=== PATIENT | female | born 1960 | race Caucasian/White ===

== ENCOUNTER 2019-09-11 18:19 | Inpatient (IN) ==
[2019-09-11 19:34] LABS: Basophils # (auto) 0.03 K/uL (0-0.2); Basophils % (auto) 0.5 %; Eosinophils # (auto) 0.13 K/uL (0-0.5); Eosinophils % (auto) 2.4 %; Hematocrit (blood only) 43.2 % (37-47); Hemoglobin 13.9 g/dL (12.0-16.0); Immature Granulocytes # (auto) 0.01 K/uL (0.00-0.02); Immature Granulocytes % (auto) 0.2 %; Lymphocytes # (auto) 2.26 K/uL (1.2-3.4); Mean Corpuscular Hgb Conc 32.2 g/dL (32-36); Mean Corpuscular Volume 93.1 fL (80-100); Mean Platelet Volume 11.3 fL (7.4-10.4); Monocytes # (auto) 0.52 K/uL (0.11-0.59); Monocytes % (auto) 9.4 %; Neutrophils # (auto) 2.56 K/uL (1.4-6.5); Neutrophils % (auto) 46.5 %; Platelet Count 147 K/uL (130-400); RDW Coefficient of Variation 14.3 % (11.5-14.5); RDW Standard Deviation 48.2 fL (36.4-46.3); Red Blood Count 4.64 M/uL (4.2-5.4); White Blood Count 5.51 K/uL (4.8-10.8)
[2019-09-11 19:49] LABS: Acetaminophen < 2 ug/ml (10-30); Alanine Aminotransferase 34 U/L (12-78); Albumin Level 3.7 gm/dl (3.4-5.0); Aspartate Aminotransferase 22 U/L (15-37); BUN Creatinine Ratio 44.7 (10-20); Blood Urea Nitrogen 36 mg/dl (7-18); Calcium 9.2 mg/dl (8.5-10.1); Carbon Dioxide 26 mmol/L (21-32); Chloride 108 mmol/L (98-107); Est GFR (African American) 94.9; Est GFR (Non-African American) 81.8; Glucose 127 mg/dl (70-99); Potassium 3.7 mmol/L (3.5-5.1); Salicylate 2.9 mg/dl (2.8-20); Sodium 141 mmol/L (136-145)
[2019-09-11 19:59] LABS: Albumin Globulin Ratio 1.4 (0.9-2); Alkaline Phosphatase 48 U/L (45-117); Bilirubin,Total 0.2 mg/dl (0.2-1); Globulin 2.6 gm/dl (2.5-4.0); Total Protein 6.3 gm/dl (6.4-8.2)
[2019-09-11 20:46] LABS: Appearance Urine Clear (Clear); Bacteria Urine Automated Negative (Negative); Bilirubin Urine Negative (Negative); Blood Urine Negative (Negative); Color Urine Yellow; Epithelial Cell Urine Auto >30 /lpf (0-5); Glucose Urine UA Negative (Negative); Ketones Urine Negative (Negative); Leukocyte Esterase Urine Trace (Negative); Nitrite Urine Negative (Negative); Protein Urine Negative (Negative); RBC Urine Automated 0-4 /hpf (0-4); Specific Gravity Urine 1.029 (1.000-1.030); Urobilinogen Urine Negative (Negative); pH Urine 5.5 (4.5-7.5)
[2019-09-11 21:07] LABS: Amphetamines+Metham, Urine Neg (Neg); Barbiturates, Urine Neg (Neg); Benzodiazepine, Urine Neg (Neg); Cocaine, Urine Neg (Neg); MDMA (Ecstacy), Urine Pos (Neg); Methadone, Urine Neg (Neg); Opiate, Urine Neg (Neg); Phencyclidine, Urine Neg (Neg)
--- NOTE | 2019-09-11 21:26 | Emergency Department Note ---
Entered by Karolina Castillo acting as a scribe for History of Present Illness General Chief complaint: Mental Health Evaluation Stated complaint: DEPRESSION, BORDERLINE SELF HARM-ADMISSION Time Seen by Provider: 09/11/19 18:32 Source: patient History of Present Illness Onset (ago): day(s) 1 Pain Consistency: + constant Relieved By: + none Associated symptoms: + denies other symptoms (denies HI and AVH) Treatments prior to arrival: none The patient is a 59 year old female w/ PMHx of depression and suicidal thoughts who presents to the ED w/ CC of increased suicidal thoughts beginning today. Today she went to her scheduled appointment with her psychiatrist. From their session, her psychiatrist decided it was best to call for a bed for her in a mental health facility. The patient states that when she closes her eyes she can see herself overdosing. She reports taking her medications regularly. She denies HI as well as seeing or hearing things that are not real. She reports sleeping sometimes too much, and other times too little. She denies abdominal pain, urinary symptoms, and abnormal bowel issues. Home Medications Home Medications Medication Instructions Recorded Confirmed Type aspirin 81 mg PO DAILY #0 03/16/16 09/11/19 History Multi Vitamin 1 tab PO DAILY #0 tab 04/09/18 09/11/19 History clonazepam 1 mg PO BID PRN 09/11/19 09/11/19 History dicyclomine 20 mg PO QID 09/11/19 09/11/19 History esomeprazole magnesium [Nexium] 40 mg PO HS 09/11/19 09/11/19 History fenofibrate micronized 200 mg PO QAM 09/11/19 09/11/19 History lamotrigine [Lamictal] 200 mg PO BID 09/11/19 09/11/19 History linaclotide [Linzess] 145 mcg PO DAILY 09/11/19 09/11/19 History lisinopril 2.5 mg PO HS 09/11/19 09/11/19 History lovastatin 20 mg PO HS 09/11/19 09/11/19 History olanzapine [Zyprexa] 5 mg PO BID 09/11/19 09/11/19 History omega-3 acid ethyl esters [Lovaza] 2 g PO BID 09/11/19 09/11/19 History trazodone 200 mg PO HS PRN 09/11/19 09/11/19 History varenicline [Chantix] 1 mg PO QAM 09/11/19 09/11/19 History Allergies Allergy/AdvReac Type Severity Reaction Status Date / Time lactose Allergy Intermediate Diarrhea Verified 09/11/19 19:53 clarithromycin Allergy Unknown ITCHY Unverified 09/11/19 19:53 Past Med/Surg History Medical History Bipolar disorder GERD (gastroesophageal reflux disease) (Chronic) History of tinnitus (Chronic) Hyperlipidemia Kidney disease Psychosis Family History Other Family history non-contributory Social History Feels Safe at Home: Yes Smoking Status: Current some day smoker Tobacco Type: cigarettes ; Review of Systems See HPI for pertinent positives & negatives. and A total of 10 systems reviewed and were otherwise negative Physical Exam Vital Signs Vital Signs - 24 hr 09/11/19 18:24 09/11/19 20:35 Temperature 36.5 C Temperature Source Oral Pulse Rate 75 Pulse Rate [Finger] 61 Pulse Rhythm Regular Pulse Strength Normal Respiratory Rate 18 16 Respiratory Effort / Characteristics Non-Labored Spontaneous Respiratory Depth Normal Blood Pressure 135/70 Blood Pressure [Right Arm] 135/63 Blood Pressure Mean 91 Blood Pressure Mean [Right Arm] 87 Blood Pressure Position Sitting Pulse Oximetry 98 96 Oxygen Delivery Method Room Air Room Air Sepsis Recent Fever Within 48 Hours No Sepsis New/Unexplained Change in Mental Status No Sepsis Action Taken by Nursing No Action Required GENERAL: Wearing glasses. Well nourished, NAD, non-toxic. EYE EXAM: Normal conjunctiva. PERRL, no anisocoria and EOM's grossly intact w/o pain. OROPHARYNX: Moist mucous membranes. Grossly normal dentition. NECK: Supple, no nuchal rigidity, no adenopathy, non-tender. No signs of m eningismus. LUNGS: Clear to auscultation. Normal chest wall mechanics. HEART: NSR, no MRG. ABDOMEN: Abdomen soft, non-tender, normo-active bowel sounds, no masses, no rebound or guarding. BACK: No CVA TTP. SKIN: No rashes and no bruising. UPPER EXTREMITIES: Upper extremities are grossly normal. LOWER EXTREMITIES: No pitting edema. No calf pain. NEURO EXAM: A&O x3, cranial nerves II-XII grossly intact, normal speech, moves all 4 extremities on command w/o issue. PSYCH: Positive SI. Denies HI and AVH. Course Course 184: Past medical records reviewed. The patient was evaluated in room A05. A complete history and physical exam was performed. 2005: The patient is medically cleared and is awaiting a bed opening. Medical Decision Making Differential Diagnosis Differential diagnosis includes: mood disorder, infection, hypoglycemia, electrolyte abnormalities, cardiac sources, intracerebral event, toxicologic, neurologic, as well as others were entertained. Medical Records Attestation: I reviewed the patient's medical records. Home Medications Current Medication List: was personally reviewed by me Laboratory Data Attestation: I reviewed the patient's lab results. Result diagrams: 09/11/19 19:12 09/11/19 19:12 Lab Results 09/11/19 09/11/19 09/11/19 Range/Units 19:12 19:12 19:12 WBC 5.51 (4.8-10.8) K/uL RBC 4.64 (4.2-5.4) M/uL Hgb 13.9 (12.0-16.0) g/dL Hct 43.2 (37-47) % MCV 93.1 (80-100) fL MCH 30.0 (25-34) pg MCHC 32.2 (32-36) g/dL RDW Std Deviation 48.2 H (36.4-46.3) fL RDW Coeff of Khadra 14.3 (11.5-14.5) % Plt Count 147 (130-400) K/uL MPV 11.3 H (7.4-10.4) fL Immature Gran % (Auto) 0.2 % Neut % (Auto) 46.5 % Lymph % (Auto) 41.0 % Socorro % (Auto) 9.4 % Eos % (Auto) 2.4 % Baso % (Auto) 0.5 % Immature Gran # (Auto) 0.01 (0.00-0.02) K/uL Neut # (Auto) 2.56 (1.4-6.5) K/uL Lymph # (Auto) 2.26 (1.2-3.4) K/uL [place] # (Auto) 0.52 (0.11-0.59) K/uL Eos # (Auto) 0.13 (0-0.5) K/uL Baso # (Auto) 0.03 (0-0.2) K/uL Sodium 141 (136-145) mmol/L Potassium 3.7 (3.5-5.1) mmol/L Chloride 108 H (98-107) mmol/L Carbon Dioxide 26 (21-32) mmol/L Anion Gap 7.0 (3-11) BUN 36 H (7-18) mg/dl Creatinine 0.80 (0.6-1.2) mg/dl Est Cr Clr Drug Dosing Not Reportable Est GFR ( Amer) 94.9 Est GFR (Non-Af Amer) 81.8 BUN/Creatinine Ratio 44.7 H (10-20) Glucose 127 H (70-99) mg/dl Calcium 9.2 (8.5-10.1) mg/dl Total Bilirubin 0.2 (0.2-1) mg/dl AST 22 (15-37) U/L ALT 34 (12-78) U/L Alkaline Phosphatase 48 (45-117) U/L Total Protein 6.3 L (6.4-8.2) gm/dl Albumin 3.7 (3.4-5.0) gm/dl Globulin 2.6 (2.5-4.0) gm/dl Albumin/Globulin Ratio 1.4 (0.9-2) TSH 1.870 (0.300-4.500) uIu/ml Urine Color Urine Appearance (Clear) Urine pH (4.5-7.5) Ur Specific Chandler (1.000-1.030) Urine Protein (Negative) Urine Glucose (UA) (Negative) Urine Ketones (Negative) Urine Blood (Negative) Urine Nitrite (Negative) Urine Bilirubin (Negative) Urine Urobilinogen (Negative) Ur Leukocyte Esterase (Negative) Urine WBC (Auto) (0-5) /hpf Urine RBC (Auto) (0-4) /hpf U Hyaline Cast (Auto) (0-5) /lpf U Epithel Cells (Auto) (0-5) /lpf Urine Bacteria (Auto) (Negative) Salicylates 2.9 (2.8-20) mg/dl Urine Opiates Screen (Neg) Ur Methadone, Qual (Neg) Acetaminophen < 2 L (10-30) ug/ml Urine Barbiturates (Neg) Ur Phencyclidine (PCP) (Neg) U Amphetamin/Meth Scrn (Neg) MDMA (Ecstasy) Screen (Neg) U Benzodiazepines Scrn (Neg) Ur Cocaine Metabolite (Neg) U Marijuana (THC) Screen (Neg) Ethyl Alcohol mg/dL (0-3) mg/dl 09/11/19 09/11/19 09/11/19 Range/Units 19:12 20:30 20:30 WBC (4.8-10.8) K/uL RBC (4.2-5.4) M/uL Hgb (12.0-16.0) g/dL Hct (37-47) % MCV (80-100) fL MCH (25-34) pg MCHC (32-36) g/dL RDW Std Deviation (36.4-46.3) fL RDW Coeff of Khadra (11.5-14.5) % Plt Count (130-400) K/uL MPV (7.4-10.4) fL Immature Gran % (Auto) % Neut % (Auto) % Lymph % (Auto) % [place] % (Auto) % Eos % (Auto) % Baso % (Auto) % Immature Gran # (Auto) (0.00-0.02) K/uL Neut # (Auto) (1.4-6.5) K/uL Lymph # (Auto) (1.2-3.4) K/uL [place] # (Auto) (0.11-0.59) K/uL Eos # (Auto) (0-0.5) K/uL Baso # (Auto) (0-0.2) K/uL Sodium (136-145) mmol/L Potassium (3.5-5.1) mmol/L Chloride (98-107) mmol/L Carbon Dioxide (21-32) mmol/L Anion Gap (3-11) BUN (7-18) mg/dl Creatinine (0.6-1.2) mg/dl Est Cr Clr Drug Dosing Est GFR ( Amer) Est GFR (Non-Af Amer) BUN/Creatinine Ratio (10-20) Glucose (70-99) mg/dl Calcium (8.5-10.1) mg/dl Total Bilirubin (0.2-1) mg/dl AST (15-37) U/L ALT (12-78) U/L Alkaline Phosphatase (45-117) U/L Total Protein (6.4-8.2) gm/dl Albumin (3.4-5.0) gm/dl Globulin (2.5-4.0) gm/dl Albumin/Globulin Ratio (0.9-2) TSH (0.300-4.500) uIu/ml Urine Color Yellow Urine Appearance Clear (Clear) Urine pH 5.5 (4.5-7.5) Ur Specific Chandler 1.029 (1.000-1.030) Urine Protein Negative (Negative) Urine Glucose (UA) Negative (Negative) Urine Ketones Negative (Negative) Urine Blood Negative (Negative) Urine Nitrite Negative (Negative) Urine Bilirubin Negative (Negative) Urine Urobilinogen Negative (Negative) Ur Leukocyte Esterase Trace H (Negative) Urine WBC (Auto) 1-5 (0-5) /hpf Urine RBC (Auto) 0-4 (0-4) /hpf U Hyaline Cast (Auto) 1-5 (0-5) /lpf U Epithel Cells (Auto) >30 H (0-5) /lpf Urine Bacteria (Auto) Negative (Negative) Salicylates (2.8-20) mg/dl Urine Opiates Screen Neg (Neg) Ur Methadone, Qual Neg (Neg) Acetaminophen (10-30) ug/ml Urine Barbiturates Neg (Neg) Ur Phencyclidine (PCP) Neg (Neg) U Amphetamin/Meth Scrn Neg (Neg) MDMA (Ecstasy) Screen Pos H (Neg) U Benzodiazepines Scrn Neg (Neg) Ur Cocaine Metabolite Neg (Neg) U Marijuana (THC) Screen Neg (Neg) Ethyl Alcohol mg/dL < 3.0 (0-3) mg/dl Blood Pressure Blood Pressure Findings: Elevated blood pressure Blood Pressure Disposition: Referred to patients primary care provider MDM Narrative The patient is a 59 year old female w/ PMHx of depression and suicidal thoughts who presents to the ED w/ CC of increased suicidal thoughts beginning today Patient was seen and evaluated the bedside. The patient been seen here yesterday and did not meet acute inpatient criteria but did follow-up with her psychiatrist today and there is concern for suicidal ideation with plan to overdose. Patient has complained of some change in her sleep habits and poor appetite. The patient states that she is been compliant with her medications and is not actually overdosed on anything today. The patient did have blood work completed along with urine drug and tox screen. These were unremarkable. Patient was deemed medically cleared. The patient was seen and evaluated by psych vocational case manager and subsequently admitted to [facility] for acute inpatient psychiatric treatment. Impression & Plan Depression with suicidal ideation, Acute dehydration Discharge Plan Visit Data Chief Complaint: Mental Health Evaluation Stated Complaint: DEPRESSION, BORDERLINE SELF HARM-ADMISSION ED Provider: Alexandro Montelongo Discharge Problem: Depression with suicidal ideation, Acute dehydration Forms Stand Alone Forms: [facility], Suicide Prevention Resources Prescriptions Prescriptions: No Action aspirin 81 mg Tablet,Delayed Release (Dr/Ec) 81 mg PO DAILY Qty: 0 RF: 0 Multi Vitamin tablet 1 tab PO DAILY Qty: 0 RF: 0 lamotrigine [Lamictal] 200 mg tablet 200 mg PO BID RF: 0 olanzapine [Zyprexa] 5 mg tablet 5 mg PO BID RF: 0 clonazepam 1 mg tablet 1 mg PO BID PRN (Reason: Anxiety) RF: 0 fenofibrate micronized 200 mg capsule 200 mg PO QAM RF: 0 trazodone 100 mg tablet 200 mg PO HS PRN (Reason: Sleep) RF: 0 dicyclomine 20 mg tablet 20 mg PO QID RF: 0 esomeprazole magnesium [Nexium] 40 mg capsule,delayed release(DR/EC) 40 mg PO HS RF: 0 lovastatin 20 mg tablet 20 mg PO HS RF: 0 lisinopril 2.5 mg tablet 2.5 mg PO HS RF: 0 omega-3 acid ethyl esters [Lovaza] 1 gram capsule 2 g PO BID RF: 0 Chantix 1 mg tablet 1 mg PO QAM RF: 0 Linzess 145 mcg capsule 145 mcg PO DAILY RF: 0 The scribe's documentation has been prepared under my direction and personally reviewed by me in its entirety. I confirm that the note above accurately reflects all work, treatment, procedures, and medical decision making performed by me.
[2019-09-11] MEDS ORDERED: ALUMINUM/MAGNESIUM SUSP 30 ML UDC PO PRN (22:46)
[2019-09-11] MEDS ORDERED: ACETAMINOPHEN 325 MG TAB PO PRN (22:46)
[2019-09-11] MEDS ORDERED: SODIUM CHLORIDE 0.65% NA SOLN 45 ML (OCEAN) PRN (22:46)
[2019-09-11] MEDS ORDERED: MAGNESIUM HYDROXIDE SUSP 30 ML UDC PO PRN (22:46)
[2019-09-11] MEDS ORDERED: clonazePAM 1 MG TAB PO PRN (22:48)
[2019-09-12] MEDS: LISINOPRIL 2.5 MG TAB PO SCH ×2 (00:12→21:15)
[2019-09-12] MEDS: LOVASTATIN 20 MG TAB PO SCH ×2 (00:13→21:14)
[2019-09-12] MEDS: OLANZapine 5 MG TABLET PO SCH ×4 (00:13→21:15)
[2019-09-12] MEDS: TRAZODONE HCL 100 MG TAB PO PRN ×2 (00:17→21:30)
[2019-09-12] MEDS ORDERED: DICYCLOMINE HCL 20 MG TAB PO SCH (09:00)
[2019-09-12] MEDS ORDERED: NICOTINE 7 MG/24 HR TDSY TD SCH (09:00)
[2019-09-12] MEDS: LINACLOTIDE 72 MCG CAPSULE PO SCH (09:16)
[2019-09-12] MEDS: FENOFIBRATE NANOCRYSTALLIZED 48 MG TABLET PO SCH (09:19)
[2019-09-12] MEDS: lamoTRIgine 100 MG TAB PO SCH ×2 (09:19→21:13)
[2019-09-12] MEDS: ASPIRIN 81 MG ECTAB PO SCH (09:19)
[2019-09-12] MEDS: MULTIVITAMIN TAB PO SCH (09:20)
[2019-09-12] MEDS: OMEGA-3 (PURIFIED FISH OIL) 1 GM CAP PO SCH ×2 (09:21→21:13)
--- NOTE | 2019-09-12 10:58 | History & Physical ---
Date of Service September 12, 2019 Impression / Recommendations Impression 59-year-old female who has a history of mood disorder (previously diagnosed with both bipolar type I and type II, now with depression), panic disorder, and psychosis NOS who presents with worsening mood and anxiety symptoms and suicidal ideation. She had gone so far as to line up her pill bottles and contemplate overdosing, and does not feel safe outside of the hospital. Inpatient treatment is medically necessary due to the severity of her symptoms and risk for suicide if discharged. (1) Depression: 09/12 -continue home dose of lamotrigine, and patient agrees to increase Zyprexa to 7.5 mg at bedtime to target sleep and mood. -Patient is asking to discontinue Chantix, as she thinks it is contributing to worsening mood. -Continue trazodone for sleep. -Encourage participation in groups and therapy, work on healthy coping skills and a discharge safety plan. -Family meeting has been. -Encourage her to engage in outpatient therapy, and explore ways to increase her supports and socialization. -Request most recent fasting labs for monitoring on an atypical antipsychotic, which patient states she had done at [facility] in [place]. Active/Remission status: currently active Depression Type: major depressive disorder Major depression episode severity: severe Major depression recurrence: recurrent Psychotic features: with psychotic features Qualified Code(s): F33.3 - Major depressive disorder, recurrent, severe with psychotic symptoms Present on Admission?: Yes (2) Panic disorder with agoraphobia: 09/12 -continue clonazepam and change dosing to 0.5 mg 4 times daily, which is how the patient states she takes it at home and how it is most effective. Present on Admission?: Yes (3) Nicotine dependence: 09/12 -patient has cut back significantly on her smoking over the past 2 months, but would like to try discontinuing Chantix to see if it helps with mood. She would like to utilize nicotine replacement instead, so will order a 7 mg patch and nicotine gum as needed. Follow-up will be scheduled with her outpatient psychiatrist for ongoing smoking cessation treatment. Present on Admission?: Yes Risk Factors Assessment Male: No : Yes Do You Have Access To A Gun?: No Health Problems: Yes Mental Health Diagnoses: Yes Substance Use Disorders: No Previous Attempt: No Family History of Suicide: No Previous Psychiatric Hospitalization: Yes Hopelessness: No Smoker: Yes Protective Factors Assessment : Yes Responsible for Young Children: No Employed: No Stable Relationships: Yes Supportive Family: Yes Good Rapport with Provider: Yes Psychiatric History Identifying Data ERIKA DUBON is a 59-year-old F who currently lives in [place], [place], with her , has a history of anxiety and depression, and was admitted on 09/11/19 22:04 on a 201 voluntary commitment for worsening depression and suicidality with thoughts to overdose on her medications. Chief Complaint "I've been isolated". History of Present Illness Patient is known to us from a previous hospitalization on our unit in March 2018 for paranoia and delusions of persecution. She thought that drug addicts were coming into her home and tampering with her belongings, and that her food and water at home were contaminated. She did not demonstrate significant mood symptoms, and was diagnosed with psychosis NOS with consideration for schizoaffective disorder. She was continued on her home dose of lamotrigine for bipolar disorder, and trazodone and clonazepam were decreased due to sedation, and was initially switched from olanzapine to ziprasidone to target psychosis. She then refused to continue the ziprasidone trial as she felt it was causing side effects, so was switched back to olanzapine and ultimately discharged on 5 mg at bedtime. She was discharged to follow-up with her outpatient psychiatrist and referred for therapy at [facility] as well. She presented to the ER twice in the past 2 days, and initially the evening of 09/10/2019, reporting worsening depression, with passive suicidal ideation. She denied any plan or intent to harm herself, and was discharged home. She saw her outpatient psychiatrist, Dr. Walsh, yesterday, and reported worsening mood and suicidal ideation with thoughts of cutting herself or overdosing. He referred her to the hospital for inpatient treatment. Laboratory workup in the ER was unremarkable. On my assessment, she reports worsening depression for the past few months, has been isolating and feeling more hopeless, with increasing suicidal thoughts, "they got bad." She reports lining up all of her pill bottles this past weekend, and thinking about overdosing on them, and has also had thoughts of cutting her wrists. Her children are protective. She reports frequent crying spells, restless sleep, increased appetites with 20lb weight gain (she thinks due to quitting smoking), feeling overwhelmed, hopelessness, and low energy. States she has been on Chantix for 2 months and has decreased her smoking from "chain smoking all day," (2+ PPD) to 6-8 cigarettes/day. She does think it has contributed to decreased mood, and would like to stop it (although outpatient progress note from 08/08/2019 states she had not noticed exacerbation of psychiatric symptoms). Anxiety has been "off the charts," and states she struggles to remember to take clonazepam,which she states she takes 0.5mg qid. She also states she only takes olanzapine 5mg at bedtime, although it is prescribed BID, because it causes sedation during the day. She denies any r ecent psychotic symptoms, and none are noted in outpatient records from recent months. Past Psychiatric History Previous Psych History: Outpatient records indicate diagnoses of: MDD, recurrent, without psychosis, Agoraphobia with panic disorder, Delusional disorder Multiple previous psychiatrists; diagnosed with bipolar type II in 2006 after multiple trials of antidepressants. Dr. Morris diagnosed bipolar I, later changed to MDD. Current Psychiatric Diagnosis: recurrent depression, delusional disorder, panic disorder Outpatient Services: Psychiatrist: Dr. Walsh no therapist - states she went to one session after her last hospitalization, but "it wasn't a right fit." No case management manager. Previous Psych Admissions: Here in March 2018 for paranoia and delusions Do You Have Access To A Gun?: No History of Previous Suicide Attempt: No Past Medication Trials: Geodon "did not agree with me" Risperidone "did not work, side effects" Seroquel ("didn't agree with me") Abilify ("couldn't sleep") Topamax ("didn't agree with me") Wellbutrin ("felt like I was wearing a suit of armor") Celexa (sexual dysfunction), Effexor ("spaced out") Lexapro ("couldn't function or do ordinary tasks") Serzone ("couldn't function") Montross ("walking ") Trazodone Zyprexa (balance problems at 10 and 20 mg a day) Paxil ("didn't agree with me") Zoloft (same) Depakote ("white blood count went wacky" although it was otherwise helpful during the year that she took it) Buspar ("not functioning", an attempt to replace Klonopin) Neurontin (fecal impaction; no bowel movement for eight days then had to go to the emergency room; problems with vision; nonfunctioning; this again was an attempt to replace Klonopin) Clonidine 0.1 mg daily ("made the panic worse; went to the ER again; functioning poorly; dehydration") Allergies Allergy/AdvReac Type Severity Reaction Status Date / Time lactose Allergy Intermediate Diarrhea Verified 09/11/19 19:53 clarithromycin Allergy Unknown ITCHY Unverified 09/11/19 19:53 Home Medications Home Medications Medication Instructions Recorded Confirmed Type aspirin 81 mg PO DAILY #0 03/16/16 09/11/19 History Multi Vitamin 1 tab PO DAILY #0 tab 04/09/18 09/11/19 History clonazepam 1 mg PO BID PRN 09/11/19 09/11/19 History dicyclomine 20 mg PO QID 09/11/19 09/11/19 History esomeprazole magnesium [Nexium] 40 mg PO HS 09/11/19 09/11/19 History fenofibrate micronized 200 mg PO QAM 09/11/19 09/11/19 History lamotrigine [Lamictal] 200 mg PO BID 09/11/19 09/11/19 History linaclotide [Linzess] 145 mcg PO DAILY 09/11/19 09/11/19 History lisinopril 2.5 mg PO HS 09/11/19 09/11/19 History lovastatin 20 mg PO HS 09/11/19 09/11/19 History olanzapine [Zyprexa] 5 mg PO BID 09/11/19 09/11/19 History omega-3 acid ethyl esters [Lovaza] 2 g PO BID 09/11/19 09/11/19 History trazodone 200 mg PO HS PRN 09/11/19 09/11/19 History varenicline [Chantix] 1 mg PO QAM 09/11/19 09/11/19 History Family History Family History of: Depression Family Mental Health History Comment: Father: Depression Alcohol History Hx of Alcohol Use Over the Past 12 Months: No AUDIT Total Score: 0 Smoking Use Have You Smoked or Used Tobacco Products in the Last 30 Days: Yes tobacco type: cigarettes Smoking Status: Light tobacco smoker Smoking packs per day: 0.5 Substance History Hx of Prescription Med Misuse Over the Past 12 Months: No Hx of Over the Counter Med Misuse Over the Past 12 Months: No Hx of Inhalent Misuse Over the Past 12 Months: No Hx of Organic Substance Use Over the Past 12 Months: No Hx of Illegal Substances/Street Drug Use Over Past 12 Months: No Problems as a Result of Past Substance Use: None Identified Personal History Living Arrangements: Home Living Arrangements Comments: [place] with , reports good relationship Childhood: Raised in [place], the oldest of three. Neither of her parents were affectionate or expressed love towards the children. She felt restricted; i.e., her mother would not let her leave the house very often. She has had a "nervous stomach" since childhood. She was teased a lot in school. Highest Grade Completed: High School Graduate Employment Status: Disabled Marital Status: Number Of Children: 2 - adult son and daughter Beliefs That Will Affect Care: None Current Legal Problems: No Hx Traumatic Life Events: No Patient History Medical History Bipolar disorder GERD (gastroesophageal reflux disease) (Chronic) History of tinnitus (Chronic) Hyperlipidemia Kidney disease Psychosis Family History Other Family history non-contributory Social History Communication Ability: Effective Sound Effects Person Required: No Beliefs That Will Affect Care: None Feels Safe at Home: Yes Smoking Status: Light tobacco smoker Tobacco Type: cigarettes ; Review of Systems Review of Systems: All systems reviewed & are unremarkable except as noted in HPI & below Physical Exam Psychiatric: Orientation: alert and cooperative Apperance: appropriately dressed, + disheveled and appeared stated age Dressed al in dark ceja/black, short dyed hair that is sticking up Eye Contact: good eye contact Motor Behavior: steady gait and station and no abnormal motor movements Speech: normal rate/rhythm/volume of speech Affect: + depressed affect and mood congruent with affect Mood: + depressed mood Thought Process: goal directed thought process Thought Content: reality based without delusions Suicidal Thoughts: + reports suicidal thoughts Homicidal Thoughts: denies homicidal thoughts Hallucinations: no auditory hallucinations and no visual hallucinations Cognition: recent memory grossly intact, attention grossly intact and language grossly intact Insight: + fair insight Judgement: + fair judgement Vital Signs (Past 24 Hours): Last Vital Signs Temp 36.4 C L 09/12/19 06:46 Pulse 81 09/12/19 06:46 Resp 18 09/12/19 06:46 BP 134/77 09/12/19 06:46 Pulse Ox 98 09/11/19 22:32 Exam Statement: A physical exam was performed in the ER prior to admission to the unit by Dr. Alexandro Montelongo. I accept that physical as correct/medical clearance for the inpatient physical exam. Results & Data Laboratory Results Laboratory Results - last 24 hr 09/11/19 09/11/19 09/11/19 19:12 19:12 19:12 WBC 5.51 RBC 4.64 Hgb 13.9 Hct 43.2 MCV 93.1 MCH 30.0 MCHC 32.2 RDW Std Deviation 48.2 H RDW Coeff of Khadra 14.3 Plt Count 147 MPV 11.3 H Immature Gran % (Auto) 0.2 Neut % (Auto) 46.5 Lymph % (Auto) 41.0 Peach % (Auto) 9.4 Eos % (Auto) 2.4 Baso % (Auto) 0.5 Immature Gran # (Auto) 0.01 Neut # (Auto) 2.56 Lymph # (Auto) 2.26 Peach # (Auto) 0.52 Eos # (Auto) 0.13 Baso # (Auto) 0.03 Sodium 141 Potassium 3.7 Chloride 108 H Carbon Dioxide 26 Anion Gap 7.0 BUN 36 H Creatinine 0.80 Est Cr Clr Drug Dosing Not Reportable Est GFR ( Amer) 94.9 Est GFR (Non-Af Amer) 81.8 BUN/Creatinine Ratio 44.7 H Glucose 127 H Calcium 9.2 Total Bilirubin 0.2 AST 22 ALT 34 Alkaline Phosphatase 48 Total Protein 6.3 L Albumin 3.7 Globulin 2.6 Albumin/Globulin Ratio 1.4 TSH 1.870 Urine Color Urine Appearance Urine pH Ur Specific Veteran Urine Protein Urine Glucose (UA) Urine Ketones Urine Blood Urine Nitrite Urine Bilirubin Urine Urobilinogen Ur Leukocyte Esterase Urine WBC (Auto) Urine RBC (Auto) U Hyaline Cast (Auto) U Epithel Cells (Auto) Urine Bacteria (Auto) Salicylates 2.9 Urine Opiates Screen Ur Methadone, Qual Acetaminophen < 2 L Urine Barbiturates Ur Phencyclidine (PCP) U Amphetamin/Meth Scrn MDMA (Ecstasy) Screen U MDMA (Ecstasy), Quant U Benzodiazepines Scrn Ur Cocaine Metabolite U Marijuana (THC) Screen Ethyl Alcohol mg/dL 09/11/19 09/11/19 09/11/19 19:12 20:30 20:30 WBC RBC Hgb Hct MCV MCH MCHC RDW Std Deviation RDW Coeff of Khadra Plt Count MPV Immature Gran % (Auto) Neut % (Auto) Lymph % (Auto) Peach % (Auto) Eos % (Auto) Baso % (Auto) Immature Gran # (Auto) Neut # (Auto) Lymph # (Auto) Peach # (Auto) Eos # (Auto) Baso # (Auto) Sodium Potassium Chloride Carbon Dioxide Anion Gap BUN Creatinine Est Cr Clr Drug Dosing Est GFR ( Amer) Est GFR (Non-Af Amer) BUN/Creatinine Ratio Glucose Calcium Total Bilirubin AST ALT Alkaline Phosphatase Total Protein Albumin Globulin Albumin/Globulin Ratio TSH Urine Color Yellow Urine Appearance Clear Urine pH 5.5 Ur Specific Veteran 1.029 Urine Protein Negative Urine Glucose (UA) Negative Urine Ketones Negative Urine Blood Negative Urine Nitrite Negative Urine Bilirubin Negative Urine Urobilinogen Negative Ur Leukocyte Esterase Trace H Urine WBC (Auto) 1-5 Urine RBC (Auto) 0-4 U Hyaline Cast (Auto) 1-5 U Epithel Cells (Auto) >30 H Urine Bacteria (Auto) Negative Salicylates Urine Opiates Screen Neg Ur Methadone, Qual Neg Acetaminophen Urine Barbiturates Neg Ur Phencyclidine (PCP) Neg U Amphetamin/Meth Scrn Neg MDMA (Ecstasy) Screen Pos H U MDMA (Ecstasy), Quant U Benzodiazepines Scrn Neg Ur Cocaine Metabolite Neg U Marijuana (THC) Screen Neg Ethyl Alcohol mg/dL < 3.0 09/11/19 20:30 WBC RBC Hgb Hct MCV MCH MCHC RDW Std Deviation RDW Coeff of Khadra Plt Count MPV Immature Gran % (Auto) Neut % (Auto) Lymph % (Auto) Peach % (Auto) Eos % (Auto) Baso % (Auto) Immature Gran # (Auto) Neut # (Auto) Lymph # (Auto) Peach # (Auto) Eos # (Auto) Baso # (Auto) Sodium Potassium Chloride Carbon Dioxide Anion Gap BUN Creatinine Est Cr Clr Drug Dosing Est GFR ( Amer) Est GFR (Non-Af Amer) BUN/Creatinine Ratio Glucose Calcium Total Bilirubin AST ALT Alkaline Phosphatase Total Protein Albumin Globulin Albumin/Globulin Ratio TSH Urine Color Urine Appearance Urine pH Ur Specific Veteran Urine Protein Urine Glucose (UA) Urine Ketones Urine Blood Urine Nitrite Urine Bilirubin Urine Urobilinogen Ur Leukocyte Esterase Urine WBC (Auto) Urine RBC (Auto) U Hyaline Cast (Auto) U Epithel Cells (Auto) Urine Bacteria (Auto) Salicylates Urine Opiates Screen Ur Methadone, Qual Acetaminophen Urine Barbiturates Ur Phencyclidine (PCP) U Amphetamin/Meth Scrn MDMA (Ecstasy) Screen U MDMA (Ecstasy), Quant Pending U Benzodiazepines Scrn Ur Cocaine Metabolite U Marijuana (THC) Screen Ethyl Alcohol mg/dL Current Inpatient Medications Current Inpatient Medications: Current Inpatient Medications Acetaminophen (Tylenol) 650 mg PO Q4H PRN PRN Reason: Headache or Minor Fever Stop: 10/11/19 22:45 Al Hydrox/Mg Hydrox/Simethicone (Maalox) 30 ml PO Q4H PRN PRN Reason: GI Upset Stop: 10/11/19 22:45 Aspirin (Ecotrin Ectab) 81 mg PO QAM [facility] Stop: 10/12/19 08:59 Last Admin: 09/12/19 09:19 Dose: 81 mg Documented by: Bismuth Subsalicylate (Kaopectate) 15 ml PO PRN PRN PRN Reason: Loose Stool Stop: 10/11/19 22:45 Clonazepam (Klonopin) 1 mg PO BID PRN PRN Reason: Anxiety Stop: 10/11/19 22:47 Last Admin: 09/12/19 09:36 Dose: 1 mg Documented by: Dicyclomine HCl (Bentyl) 20 mg PO QID [facility] Stop: 10/12/19 08:59 Last Admin: 09/12/19 09:18 Dose: 20 mg Documented by: Fenofibrate (Fenofibrate) 192 mg PO DAILY [facility] Stop: 10/12/19 08:59 Last Admin: 09/12/19 09:19 Dose: 192 mg Documented by: Fish Oil ([place]-3 (Purified Fish Oil)) 2 gm PO BID [facility] Stop: 10/12/19 08:59 Last Admin: 09/12/19 09:21 Dose: 2 gm Documented by: Hydroxyzine HCl (Vistaril) 50 mg PO HSZ PRN PRN Reason: Insomnia Stop: 10/11/19 23:07 Hydroxyzine HCl (Vistaril) 25 mg PO Q4H PRN PRN Reason: Anxiety Stop: 10/11/19 22:45 Lamotrigine (Lamictal) 200 mg PO BID [facility] Stop: 10/12/19 08:59 Last Admin: 09/12/19 09:19 Dose: 200 mg Documented by: Linaclotide (Linzess) 144 mcg PO DAILYBB [facility] Stop: 10/12/19 07:59 Last Admin: 09/12/19 09:16 Dose: Not Given Documented by: Lisinopril (Zestril) 2.5 mg PO HS [facility] Stop: 10/11/19 22:59 Last Admin: 09/12/19 00:12 Dose: 2.5 mg Documented by: Lovastatin (Mevacor) 20 mg PO HS [facility] Stop: 10/11/19 22:59 Last Admin: 09/12/19 00:13 Dose: 20 mg Documented by: Magnesium Hydroxide (Milk Of Magnesia) 30 ml PO DAILY PRN PRN Reason: Constipation Stop: 10/11/19 22:45 Multivitamins (Multivitamin Tab) [facility]: 10/12/19 08:59 Last Admin: 09/12/19 09:20 Dose: 1 tab Documented by: Olanzapine (Zyprexa) 5 mg PO BID [facility] Stop: 10/11/19 22:59 Last Admin: 09/12/19 00:13 Dose: 5 mg Documented by: Sodium Chloride ([place] Nasal) 1 - 2 sprays NA PRN PRN PRN Reason: Nasal Dryness/Congestion Stop: 10/11/19 22:45 Trazodone HCl (Desyrel) 200 mg PO HS PRN PRN Reason: Insomnia Stop: 10/11/19 23:00 Last Admin: 09/12/19 00:17 Dose: 200 mg Documented by: Varenicline (Chantix) 1 mg PO QAM [facility] Stop: 10/13/19 08:59
[2019-09-12] MEDS ORDERED: NICOTINE POLACRILEX 2 MG GUM MT PRN (11:56)
[2019-09-12] MEDS: NICOTINE 7 MG/24 HR TDSY TD SCH (13:02)
[2019-09-12] MEDS: clonazePAM 0.5 MG TAB PO SCH ×3 (14:01→21:13)
[2019-09-12] MEDS: DICYCLOMINE HCL 20 MG TAB PO SCH (21:14)
[2019-09-13] MEDS: LINACLOTIDE 72 MCG CAPSULE PO SCH (07:47)
[2019-09-13] MEDS: OMEGA-3 (PURIFIED FISH OIL) 1 GM CAP PO SCH ×2 (08:54→22:05)
[2019-09-13] MEDS: MULTIVITAMIN TAB PO SCH (08:54)
[2019-09-13] MEDS: clonazePAM 0.5 MG TAB PO SCH ×4 (08:54→22:04)
[2019-09-13] MEDS: NICOTINE 7 MG/24 HR TDSY TD SCH (08:55)
[2019-09-13] MEDS: ASPIRIN 81 MG ECTAB PO SCH (08:55)
[2019-09-13] MEDS: FENOFIBRATE NANOCRYSTALLIZED 48 MG TABLET PO SCH (08:55)
[2019-09-13] MEDS: lamoTRIgine 100 MG TAB PO SCH ×2 (08:55→22:04)
[2019-09-13] MEDS ORDERED: VARENICLINE 1 MG TAB PO SCH (09:00)
--- NOTE | 2019-09-13 14:41 | Psychiatric Progress Note ---
Date of Service September 13, 2019 Impression / Recommendations Impression 59-year-old female who has a history of mood disorder (previously diagnosed with both bipolar type I and type II, now with depression), panic disorder, and psychosis NOS who presents with worsening mood and anxiety symptoms and suicidal ideation. She had gone so far as to line up her pill bottles and contemplate overdosing, and does not feel safe outside of the hospital. Inpatient treatment is medically necessary due to the severity of her symptoms and risk for suicide if discharged. Today, the patient reports that her mood has improved somewhat and she notices that she has been "coming out of [herself] and focusing on other people and their problems." Her affect is clearly brighter. When I had seen her in my outpatient office earlier on the day of admission, the patient was unable to st op crying and repeatedly focused on suicide. Today, she smiles and laughs appropriately, although at times she does become tearful, for example when discussing missing her and her general feeling of loneliness. With a smile, she has "pretty soon, he will be off from work like he is every year for a couple months, and at that point he is going to start getting on my nerves. I get she cannot please me!" It is entirely possible that the patient's depression may be a complication of the use of Chantix. The patient had been aware of the risk of mood disorder triggering that has been associated with Chantix, but had decided to take the risk given that she had taken Chantix before without complications and she is aware of the importance of smoking cessation. We considered adding an antidepressant medication the patient's medication regimen, but both the patient and I are in agreement with the plan to observe the patient at the somewhat higher dose of olanzapine, in combination w ith her other outpatient medications, finish her smoking cessation efforts through the use of nicotine replacement patches (without Chantix), given the patient's report that she has been improving since stopping Chantix. (1) Depression: 09/12 -continue home dose of lamotrigine, and patient agrees to increase Zyprexa to 7.5 mg at bedtime to target sleep and mood. -Patient is asking to discontinue Chantix, as she thinks it is contributing to worsening mood. -Continue trazodone for sleep. -Encourage participation in groups and therapy, work on healthy coping skills and a discharge safety plan. -Family meeting has been. -Encourage her to engage in outpatient therapy, and explore ways to increase her supports and socialization. -Request most recent fasting labs for monitoring on an atypical antipsychotic, which patient states she had done at [facility] in [place]. 09/13 -We will reduce the dose of trazodone to 150 mg at bedtime given the patient's report of some excess sedation in the mornings. -Continue to observe the patient off Chantix. -Consider adding an antidepressant medication as indicated in the future. -Continue mood stabilizers. (2) Panic disorder with agoraphobia: 09/12 -continue clonazepam and change dosing to 0.5 mg 4 times daily, which is how the patient states she takes it at home and how it is most effective. 09/13 -The patient reports that she feels more calm and less prone to panic with the zolphoi-cem-fnlw-frequent-dose of clonazepam. Clonazepam 1 mg twice a day has been discontinued (her outpatient dose) in favor of clonazepam 0.5 mg 4 times daily. -Mindfulness techniques reinforced. (3) Nicotine dependence: 09/12 -patient has cut back significantly on her smoking over the past 2 months, but would like to try discontinuing Chantix to see if it helps with mood. She would like to utilize nicotine replacement instead, so will order a 7 mg patch and nicotine gum as needed. Follow-up will be scheduled with her outpatient psychiatrist for ongoing smoking cessation treatment. Risk Factors Assessment Male: No : Yes Do You Have Access To A Gun?: No Health Problems: Yes Mental Health Diagnoses: Yes Substance Use Disorders: No Previous Attempt: No Family History of Suicide: No Previous Psychiatric Hospitalization: Yes Hopelessness: No Smoker: Yes Protective Factors Assessment : Yes Responsible for Young Children: No Employed: No Stable Relationships: Yes Supportive Family: Yes Good Rapport with Provider: Yes Interval History Chief Complaint "Depression". 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 Meal Information Percent Meal Consumed - Breakfast: 100 Percent Meal Consumed - Lunch: 100 Percent Meal Consumed - Dinner: 100 Subjective Subjective Patient was seen & assessed and interval progress reviewed with treatment team. I met individually with the patient in order to assess her current mental status, evaluate her response to treatment, coordinate with the patient any changes in her medication regimen that are necessary, and address questions, issues and concerns that may arise. The patient begins by telling me that she believes that she is "starting to feel better," but notes that she is still she notes that her suicidal thoughts have resolved, at least while in the hospital, but is concerned that if she leaves the hospital and goes home to "for edmond and no one to talk to," her depression will worsen and her suicidal thoughts will be rekindled. We discussed the possibility that Chantix may have contributed to her current depression. She had been placed on Chantix more than a two months ago for smoking cessation, and it had been effective in that regard. However, she notes that she was aware that there was a risk of mood alterations in association with sent text, and the material risks and benefits of treatment with Chantix were reviewed with the patient before she started the medication. She notes that she had not been feeling depressed for the first 6 weeks on Chantix, but noticed the onset about 2 weeks ago. We discussed treatment options, including the addition of an antidepressant medication. The patient says that she would prefer to "not add another medicine," and I indicated that my recommendation would be to complete her smoking cessation through the use of nicotine replacement patches and see how she does now that she is no longer taking Chantix. We discussed several possible medication adjustments. She notes that, in retrospect, she feels that clonazepam 1 mg twice a day may have been too strong, and she feels that the adjustment that was made (0.5 mg 4 times daily) has been "much better." She also asked that we reduce her dose of trazodone from 200 mg at bedtime to 150 mg at bedtime because of some excess morning sedation. The patient talks happily about participation in groups, and says that she thinks that part of her improvement may simply be the fact that she is "around a lot of people again." We discussed strategies for remaining active, structuring her time in the community, and avoiding loneliness. One idea that she has had would be to volunteer to help a single "shot in" elderly person who needs company and assistance. The patient has, "I think I would be good helping someone who is older. I have experience with my father. I could not work too many hours, but I think having something to do at least for part of the day would be helpful." Physical Exam Psychiatric Orientation: alert and oriented x 3 Apperance: appropriately groomed Eye Contact: good eye contact Motor Behavior: no abnormal motor movements Speech: normal rate/rhythm/volume of speech Generally euthymic, but she becomes tearful when discussing her loneliness and the fact that she is missing her . Mood: + depressed mood ("It is getting better.") Thought Process: linear/logical thought process Thought Content: reality based without delusions Suicidal Thoughts: denies suicidal thoughts The patient reports that she is not experiencing suicidal thoughts in the hospital, but fears that because the depression persists that suicidal thoughts will reemerge if she were to go home at this point. Homicidal Thoughts: denies homicidal thoughts Hallucinations: no auditory hallucinations Cognition: recent memory grossly intact, remote memory grossly intact, attention grossly intact and language grossly intact Estimated Intelligence: average estimated intelligence Insight: + fair insight Judgement: good judgement Vital Signs (Past 24 Hours) Last Vital Signs Temp 36.6 C 09/13/19 06:00 Pulse 73 09/13/19 06:38 Resp 19 09/13/19 06:00 BP 120/71 09/13/19 06:38 Pulse Ox 98 09/11/19 22:32 Results & Data Current Inpatient Medications Current Inpatient Medications: Current Inpatient Medications Acetaminophen (Tylenol) 650 mg PO Q4H PRN PRN Reason: Headache or Minor Fever Stop: 10/11/19 22:45 Al Hydrox/Mg Hydrox/Simethicone (Maalox) 30 ml PO Q4H PRN PRN Reason: GI Upset Stop: 10/11/19 22:45 Aspirin (Ecotrin Ectab) 81 mg PO QAM [facility] Stop: 10/12/19 08:59 Last Admin: 09/13/19 08:55 Dose: 81 mg Documented by: Bismuth Subsalicylate (Kaopectate) 15 ml PO PRN PRN PRN Reason: Loose Stool Stop: 10/11/19 22:45 Clonazepam (Klonopin) 0.5 mg PO QID [facility] Stop: 10/12/19 12:59 Last Admin: 09/13/19 13:39 Dose: 0.5 mg Documented by: Dicyclomine HCl (Bentyl) 40 mg PO HS [facility] Stop: 10/12/19 21:59 Last Admin: 09/12/19 21:14 Dose: 40 mg Documented by: Fenofibrate (Fenofibrate) 192 mg PO DAILY [facility] Stop: 10/12/19 08:59 Last Admin: 09/13/19 08:55 Dose: 192 mg Documented by: Fish Oil ([place]-3 (Purified Fish Oil)) 2 gm PO BID [facility] Stop: 10/12/19 08:59 Last Admin: 09/13/19 08:54 Dose: 2 gm Documented by: Hydroxyzine HCl (Vistaril) 50 mg PO HSZ PRN PRN Reason: Insomnia Stop: 10/11/19 23:07 Hydroxyzine HCl (Vistaril) 25 mg PO Q4H PRN PRN Reason: Anxiety Stop: 10/11/19 22:45 Lamotrigine (Lamictal) 200 mg PO BID [facility] Stop: 10/12/19 08:59 Last Admin: 09/13/19 08:55 Dose: 200 mg Documented by: Linaclotide (Linzess) 144 mcg PO DAILYBB@0700 [facility] Stop: 10/14/19 06:59 Lisinopril (Zestril) 2.5 mg PO HS [facility] Stop: 10/11/19 22:59 Last Admin: 09/12/19 21:15 Dose: 2.5 mg Documented by: Lovastatin (Mevacor) 20 mg PO HS [facility] Stop: 10/11/19 22:59 Last Admin: 09/12/19 21:14 Dose: 20 mg Documented by: Magnesium Hydroxide (Milk Of Magnesia) 30 ml PO DAILY PRN PRN Reason: Constipation Stop: 10/11/19 22:45 Miscellaneous (Remove Nicoderm Patch) 1 ea N/A DAILY@0859 [facility] Stop: 10/13/19 08:58 Last Admin: 09/13/19 08:56 Dose: 1 ea Documented by: Multivitamins (Multivitamin Tab) 1 tab PO QAM [facility] Stop: 10/12/19 08:59 Last Admin: 09/13/19 08:54 Dose: 1 tab Documented by: Nicotine (Nicoderm Cq) 7 mg TD QAM [facility] Stop: 10/12/19 11:44 Last Admin: 09/13/19 08:55 Dose: 7 mg Documented by: Nicotine Polacrilex (Nicorette 2mg) 1 piece MT PRN PRN PRN Reason: cravings Stop: 10/12/19 11:55 Olanzapine (Zyprexa) 7.5 mg PO HS [facility] Stop: 10/12/19 21:59 Last Admin: 09/12/19 21:15 Dose: 7.5 mg Documented by: Sodium Chloride (Nicholls Nasal) 1 - 2 sprays NA PRN PRN PRN Reason: Nasal Dryness/Congestion Stop: 10/11/19 22:45 Trazodone HCl (Desyrel) 150 mg PO HS [facility] Stop: 10/13/19 21:59 Mental Health & Subst Abuse Tx Psychiatrist Name of Psychiatrist: [facility] [employer] - Dr Walsh Psychiatrist's Date of Appointment with Psychiatrist: 09/18/19 Time of Appointment with Psychiatrist: 8:40am and 10/02/19 at 1:40pm. Psychiatric Appointment Comment: [address], [place] [address] Therapist Name of Therapist: [facility] - Therapist's Date of Therapist Appointment: 09/12/19 Time of Therapist Appointment: October 02, 2019 Interior Design Faculty Member Name of Interior Design Faculty Member: Denies/None Post Discharge Appointments Primary Care Physician Name Of Family Doctor: Dr. Feliciano [facility] Time of Appointment with PCP: Follow up as needed. Provider Appointment Comment: Constance [facility] [address], [place] [id number] Contact Information Discharge Discharge [address]: [address] [place] [address] (1) Depression Active/Remission status: currently active Depression Type: major depressive disorder Major depression episode severity: severe Major depression recurrence: recurrent Psychotic features: with psychotic features Qualified Code(s): F33.3 - Major depressive disorder, recurrent, severe with psychotic symptoms
[2019-09-13] MEDS: DICYCLOMINE HCL 20 MG TAB PO SCH (22:05)
[2019-09-13] MEDS: TRAZODONE HCL 50 MG TAB PO SCH (22:05)
[2019-09-13] MEDS: LOVASTATIN 20 MG TAB PO SCH (22:05)
[2019-09-13] MEDS: LISINOPRIL 2.5 MG TAB PO SCH (22:06)
[2019-09-13] MEDS: OLANZapine 5 MG TABLET PO SCH (22:06)
[2019-09-14] MEDS ORDERED: LINACLOTIDE 72 MCG CAPSULE PO SCH (07:00)
[2019-09-14] MEDS: clonazePAM 0.5 MG TAB PO SCH ×3 (08:39→21:31)
[2019-09-14] MEDS: ASPIRIN 81 MG ECTAB PO SCH (08:39)
[2019-09-14] MEDS: FENOFIBRATE NANOCRYSTALLIZED 48 MG TABLET PO SCH (08:39)
[2019-09-14] MEDS: OMEGA-3 (PURIFIED FISH OIL) 1 GM CAP PO SCH ×2 (08:39→21:31)
[2019-09-14] MEDS: lamoTRIgine 100 MG TAB PO SCH ×2 (08:40→21:31)
[2019-09-14] MEDS: MULTIVITAMIN TAB PO SCH (08:40)
[2019-09-14] MEDS: NICOTINE 7 MG/24 HR TDSY TD SCH (08:40)
[2019-09-14] MEDS: BISMUTH SUBSALICYLATE PER ML OMNICELL CHARGE PO PRN ×2 (11:00→11:25)
[2019-09-14] MEDS ORDERED: clonazePAM 0.5 MG TAB PO PRN (16:55)
--- NOTE | 2019-09-14 18:12 | Psychiatric Progress Note ---
Date of Service September 14, 2019 Impression / Recommendations Impression 59-year-old female who has a history of mood disorder (previously diagnosed with both bipolar type I and type II, now with depression), panic disorder, and psychosis NOS who presents with worsening mood and anxiety symptoms and suicidal ideation. She had gone so far as to line up her pill bottles and contemplate overdosing, and does not feel safe outside of the hospital. Inpatient treatment is medically necessary due to the severity of her symptoms and risk for suicide if discharged. Pt complains of being tired and attributes dose raise of olanzapine. Of note pt be fearful of dose changes to this med. Additionally, with her not smoking while on the unit, her blood level is likely raised suddenly given interaction the medication has with cigarette smoking. She is open to seeing how she does over the next day or so to see if adjusts to the new dosage. She is also seeking to quit smoking and finds this information more motivating to her. She is seeking to remain on 7mg patch for now with nicotine gum for breakthrough cravings. Given patient only newly down to 6 cigarettes a day from "chain smoking" if she is struggling with cravings and urges to smoke we will consider raising her patch level. Given patient's concerns of some diarrhea today and her Lunesta dosing we decided to lower Lunesta 72 mg a day scheduled for the time being.We also added her Nexium that she was taking as an outpatient. We added ibuprofen as needed for back pain as patient does not feel that Tylenol will be beneficial. Patient also shared that she he she was tending to hold the early evening Klonopin dosage lately in terms of patient's Klonopin might be able to restate reduce down to 2 a day on her was only taking 3 doses a day and after review we decided to keep her first and last dose as scheduled doses so morning and bedtime with converting other doses to a as needed basis this still has a rather max of 4 separate doses a day. Patient's mood does seem to be improving although we have to watch for fatigue concerns. It is possible that Chantix was worsening her mood. (1) Depression: 09/12 -continue home dose of lamotrigine, and patient agrees to increase Zyprexa to 7.5 mg at bedtime to target sleep and mood. -Patient is asking to discontinue Chantix, as she thinks it is contributing to worsening mood. -Continue trazodone for sleep. -Encourage participation in groups and therapy, work on healthy coping skills and a discharge safety plan. -Family meeting has been. -Encourage her to engage in outpatient therapy, and explore ways to increase her supports and socialization. -Request most recent fasting labs for monitoring on an atypical antipsychotic, which patient states she had done at [facility] in [place]. 09/13 -We will reduce the dose of trazodone to 150 mg at bedtime given the patient's report of some excess sedation in the mornings. -Continue to observe the patient off Chantix. -Consider adding an antidepressant medication as indicated in the future. -Continue mood stabilizers. 09/14 consider further reduction of trazodone but maintained at 150g hs for now maintained Olanzapine for now but monitoring for her sedation level as she adjusts to this dosage and educated patient about the interaction with her cigarette smoking and how quitting impacts this while utilizing this as a way to increase her motivation to become and remain smoke free (2) Panic disorder with agoraphobia: 09/12 -continue clonazepam and change dosing to 0.5 mg 4 times daily, which is how the patient states she takes it at home and how it is most effective. 09/13 -The patient reports that she feels more calm and less prone to panic with the [id number]-frequent-dose of clonazepam. Clonazepam 1 mg twice a day has been discontinued (her outpatient dose) in favor of clonazepam 0.5 mg 4 times daily. -Mindfulness techniques reinforced. 09/14 - Adjust the Klonopin to 0.5 mg a.m. and 0.5 mg nightly scheduled and up to 2 doses of 0.5 mg Klonopin as needed for anxiety Maintained treatment plan as above (3) Nicotine dependence: 09/12 -patient has cut back significantly on her smoking over the past 2 months, but would like to try discontinuing Chantix to see if it helps with mood. She would like to utilize nicotine replacement instead, so will order a 7 mg patch and nicotine gum as needed. Follow-up will be scheduled with her outpatient psychiatrist for ongoing smoking cessation treatment. 09/14 - The nicotine gum for breakthrough cravings and increased motivation for quitting smoking and addressing her struggles with quitting and her past history of quitting Risk Factors Assessment Male: No : Yes Do You Have Access To A Gun?: No Health Problems: Yes Mental Health Diagnoses: Yes Substance Use Disorders: No Previous Attempt: No Family History of Suicide: No Previous Psychiatric Hospitalization: Yes Hopelessness: No Smoker: Yes Protective Factors Assessment : Yes Responsible for Young Children: No Employed: No Stable Relationships: Yes Supportive Family: Yes Good Rapport with Provider: Yes Interval History Chief Complaint "Olanzapine dose raise is making me tired". 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 Meal Information Percent Meal Consumed - Breakfast: 100 Percent Meal Consumed - Lunch: 100 Percent Meal Consumed - Dinner: 100 Nutrition Comment: per meal record Subjective Subjective Patient was seen & assessed and interval progress reviewed with [nursing and social work. Patient complained that she is more tired and attributes this to the olanzapine dose raise. She shared how lately she has been taking only 3 doses of clonazepam instead of the full 4 that have just been prescribed. She has been trying to quit smoking cigarettes and has been prescribed Chantix until this admission but she only got down to 6 cigarettes a day she is open to using the nicotine patch and nicotine gum to help her quit she used this in the past and did not quit in the remote past and is hopeful about this she prefers to stay at 7 mg patch for the time being as she is only had one craving today. She denied suicidal thinking. She denied feeling agitated. She is attending groups and participating appropriately and engaging with peers and staff appropriately She is eating meals fully. Staff reported 6 hours of sleep patient reported 9 hours of sleep. She complaining of back pain and would like ibuprofen to help alleviate this. She She is on Linzess for chronic constipation concerns and she had some diarrhea this morning that she attributes to eating fruit and she would like her Lunesta adjusted she was wondering about as needed and we decided to lower the dose for now keeping it scheduled. Physical Exam Psychiatric Orientation: alert, oriented x 3 and cooperative Apperance: appropriately dressed, appropriately groomed, + disheveled and appeared stated age Eye Contact: good eye contact Motor Behavior: steady gait and station and no abnormal motor movements Speech: normal rate/rhythm/volume of speech Affect: + depressed affect and mood congruent with affect Mood: + depressed mood ("It is getting better.") Thought Process: goal directed thought process and linear/logical thought process Thought Content: reality based without delusions Suicidal Thoughts: denies suicidal thoughts Homicidal Thoughts: denies homicidal thoughts Hallucinations: no auditory hallucinations and no visual hallucinations Cognition: recent memory grossly intact, remote memory grossly intact, attention grossly intact and language grossly intact Estimated Intelligence: average estimated intelligence Insight: + fair insight Judgement: + fair judgement Vital Signs (Past 24 Hours) Last Vital Signs Temp 36.6 C 09/14/19 06:00 Pulse 83 09/14/19 06:51 Resp 19 09/14/19 06:00 BP 105/67 09/14/19 06:51 Pulse Ox 98 09/11/19 22:32 Results & Data Current Inpatient Medications Current Inpatient Medications: Current Inpatient Medications Acetaminophen (Tylenol) 650 mg PO Q4H PRN PRN Reason: Headache or Minor Fever Stop: 10/11/19 22:45 Al Hydrox/Mg Hydrox/Simethicone (Maalox) 30 ml PO Q4H PRN PRN Reason: GI Upset Stop: 10/11/19 22:45 Aspirin (Ecotrin Ectab) 81 mg PO QAM [facility]EYNEP Stop: 10/12/19 08:59 Last Admin: 09/14/19 08:39 Dose: 81 mg Documented by: Bismuth Subsalicylate (Kaopectate) 15 ml PO PRN PRN PRN Reason: Loose Stool Stop: 10/11/19 22:45 Last Admin: 09/14/19 11:25 Dose: 15 ml Documented by: Clonazepam (Klonopin) 0.5 mg PO BID PRN PRN Reason: Anxiety Stop: 10/14/19 16:54 Clonazepam (Klonopin) 0.5 mg PO BID ZEYNEP Stop: 10/14/19 20:59 Dicyclomine HCl (Bentyl) 40 mg PO HS ZEYNEP Stop: 10/12/19 21:59 Last Admin: 09/13/19 22:05 Dose: 40 mg Documented by: Fenofibrate (Fenofibrate) 192 mg PO DAILY [facility]EYNEP Stop: 10/12/19 08:59 Last Admin: 09/14/19 08:39 Dose: 192 mg Documented by: Fish Oil (Pana-3 (Purified Fish Oil)) 2 gm PO BID [facility]YNEP Stop: 10/12/19 08:59 Last Admin: 09/14/19 08:39 Dose: 2 gm Documented by: Hydroxyzine HCl (Vistaril) 50 mg PO HSZ PRN PRN Reason: Insomnia Stop: 10/11/19 23:07 Hydroxyzine HCl (Vistaril) 25 mg PO Q4H PRN PRN Reason: Anxiety Stop: 10/11/19 22:45 Ibuprofen (Motrin) 600 mg PO Q8H PRN PRN Reason: Pain Stop: 10/14/19 16:53 Lamotrigine (Lamictal) 200 mg PO BID [facility] Stop: 10/12/19 08:59 Last Admin: 09/14/19 08:40 Dose: 200 mg Documented by: Linaclotide (Linzess) 72 mcg PO DAILYBB@0700 [facility] Stop: 10/15/19 06:59 Lisinopril (Zestril) 2.5 mg PO [facility] Stop: 10/11/19 22:59 Last Admin: 09/13/19 22:06 Dose: 2.5 mg Documented by: Lovastatin (Mevacor) 20 mg PO [facility] Stop: 10/11/19 22:59 Last Admin: 09/13/19 22:05 Dose: 20 mg Documented by: Magnesium Hydroxide (Milk Of Magnesia) 30 ml PO DAILY PRN PRN Reason: Constipation Stop: 10/11/19 22:45 Miscellaneous (Remove Nicoderm Patch) 1 ea N/A DAILY@0859 [facility] Stop: 10/13/19 08:58 Last Admin: 09/14/19 08:40 Dose: 1 ea Documented by: Multivitamins (Multivitamin Tab) 1 tab PO QAM [facility] Stop: 10/12/19 08:59 Last Admin: 09/14/19 08:40 Dose: 1 tab Documented by: Nicotine (Nicoderm Cq) 7 mg TD QAM [facility] Stop: 10/12/19 11:44 Last Admin: 09/14/19 08:40 Dose: 7 mg Documented by: Nicotine Polacrilex (Nicorette 2mg) 1 piece MT PRN PRN PRN Reason: cravings Stop: 10/12/19 11:55 Non-Formulary Medication (Esomeprazole Magnesium [Nexium]) 40 mg PO [facility] Stop: 10/14/19 21:59 Olanzapine (Zyprexa) 7.5 mg PO [facility] Stop: 10/12/19 21:59 Last Admin: 09/13/19 22:06 Dose: 7.5 mg Documented by: Sodium Chloride (Riley Nasal) 1 - 2 sprays NA PRN PRN PRN Reason: Nasal Dryness/Congestion Stop: 10/11/19 22:45 Trazodone HCl (Desyrel) 150 mg PO HS [facility] Stop: 10/13/19 21:59 Last Admin: 09/13/19 22:05 Dose: 150 mg Documented by: Mental Health & Subst Abuse Tx Psychiatrist Name of Psychiatrist: Ann Walsh Psychiatrist's Date of Appointment with Psychiatrist: 09/18/19 Time of Appointment with Psychiatrist: 8:40am and 10/02/19 at 1:40pm. Psychiatric Appointment Comment: [address], [place], [place] [address] Therapist Name of Therapist: Ann Dumont - Therapist's Date of Therapist Appointment: 09/12/19 Time of Therapist Appointment: October 02, 2019 Therapy Appointment Comment: [address], [place], [place] [address] Land Agent Name of Land Agent: Denies/None Post Discharge Appointments Primary Care Physician Name Of Family Doctor: Dr. Feliciano [facility] Time of Appointment with PCP: Follow up as needed. Provider Appointment Comment: [facility], [place] [address] Contact Information Discharge Discharge [address]: [address] [place] [address] (1) Depression Active/Remission status: currently active Depression Type: major depressive disorder Major depression episode severity: severe Major depression recurr ence: recurrent Psychotic features: with psychotic features Qualified Code(s): F33.3 - Major depressive disorder, recurrent, severe with psychotic symptoms
[2019-09-14] MEDS: IBUPROFEN 600 MG TAB PO PRN (20:31)
[2019-09-14] MEDS: DICYCLOMINE HCL 20 MG TAB PO SCH (21:31)
[2019-09-14] MEDS: TRAZODONE HCL 50 MG TAB PO SCH (21:32)
[2019-09-14] MEDS: PANTOprazole 40 MG TAB PO SCH (21:32)
[2019-09-14] MEDS: OLANZapine 5 MG TABLET PO SCH (21:32)
[2019-09-14] MEDS: LOVASTATIN 20 MG TAB PO SCH (21:32)
[2019-09-14] MEDS: LISINOPRIL 2.5 MG TAB PO SCH (21:33)
[2019-09-15] MEDS: LINACLOTIDE 72 MCG CAPSULE PO SCH (06:56)
[2019-09-15] MEDS: OMEGA-3 (PURIFIED FISH OIL) 1 GM CAP PO SCH ×2 (08:33→21:17)
[2019-09-15] MEDS: FENOFIBRATE NANOCRYSTALLIZED 48 MG TABLET PO SCH (08:33)
[2019-09-15] MEDS: clonazePAM 0.5 MG TAB PO SCH ×2 (08:33→21:17)
[2019-09-15] MEDS: lamoTRIgine 100 MG TAB PO SCH ×2 (08:34→21:17)
[2019-09-15] MEDS: NICOTINE 7 MG/24 HR TDSY TD SCH (08:34)
[2019-09-15] MEDS: MULTIVITAMIN TAB PO SCH (08:34)
[2019-09-15] MEDS: ASPIRIN 81 MG ECTAB PO SCH (08:34)
[2019-09-15] MEDS: IBUPROFEN 600 MG TAB PO PRN ×2 (11:06→19:09)
--- NOTE | 2019-09-15 16:39 | Psychiatric Progress Note ---
Date of Service September 15, 2019 Impression / Recommendations Impression 59-year-old female who has a history of mood disorder (previously diagnosed with both bipolar type I and type II, now with depression), panic disorder, and psychosis NOS who presents with worsening mood and anxiety symptoms and suicidal ideation. She had gone so far as to line up her pill bottles and contemplate overdosing, and does not feel safe outside of the hospital. Inpatient treatment is medically necessary due to the severity of her symptoms and risk for suicide if discharged. Pt complains of being tired and attributes dose raise of olanzapine. Of note pt be fearful of dose changes to this med. Additionally, with her not smoking while on the unit, her blood level is likely raised suddenly given interaction the medication has with cigarette smoking. She is open to seeing how she does over the next day or so to see if adjusts to the new dosage. She is also seeking to quit smoking and finds this information more motivating to her. She is seeking to remain on 7mg patch for now with nicotine gum for breakthrough cravings. Given patient only newly down to 6 cigarettes a day from "chain smoking" if she is struggling with cravings and urges to smoke we will consider raising her patch level. Given patient's concerns of some diarrhea today and her Lunesta dosing we decided to lower Lunesta 72 mg a day scheduled for the time being.We also added her Nexium that she was taking as an outpatient. We added ibuprofen as needed for back pain as patient does not feel that Tylenol will be beneficial. Patient also shared that she he she was tending to hold the early evening Klonopin dosage lately in terms of patient's Klonopin might be able to restate reduce down to 2 a day on her was only taking 3 doses a day and after review we decided to keep her first and last dose as scheduled doses so morning and bedtime with converting other doses to a as needed basis this still has a rather max of 4 separate doses a day. Patient's mood does seem to be improving although we have to watch for fatigue concerns. It is possible that Chantix was worsening her mood. trazodone dose being lwoered ot help minimize s/e walker as sleep and mood improving. assisting pt in weaning clonazepam down some. assisting in quitting smoking despite now off chantix (1) Depression: 09/12 -continue home dose of lamotrigine, and patient agrees to increase Zyprexa to 7.5 mg at bedtime to target sleep and mood. -Patient is asking to discontinue Chantix, as she thinks it is contributing to worsening mood. -Continue trazodone for sleep. -Encourage participation in groups and therapy, work on healthy coping skills and a discharge safety plan. -Family meeting has been. -Encourage her to engage in outpatient therapy, and explore ways to increase her supports and socialization. -Request most recent fasting labs for monitoring on an atypical antipsychotic, which patient states she had done at [facility] in [place]. 09/13 -We will reduce the dose of trazodone to 150 mg at bedtime given the patient's report of some excess sedation in the mornings. -Continue to observe the patient off Chantix. -Consider adding an antidepressant medication as indicated in the future. -Continue mood stabilizers. 09/14 consider further reduction of trazodone but maintained at 150g hs for now maintained Olanzapine for now but monitoring for her sedation level as she adjusts to this dosage and educated patient about the interaction with her cigarette smoking and how quitting impacts this while utilizing this as a way to increase her motivation to become and remain smoke free 09/15 lowered trazodone to 100mg hs, (2) Panic disorder with agoraphobia: 09/12 -continue clonazepam and change dosing to 0.5 mg 4 times daily, which is how the patient states she takes it at home and how it is most effective. 09/13 -The patient reports that she feels more calm and less prone to panic with the otgpunv-nhl-viqx-frequent-dose of clonazepam. Clonazepam 1 mg twice a day has been discontinued (her outpatient dose) in favor of clonazepam 0.5 mg 4 times daily. -Mindfulness techniques reinforced. 09/14 - Adjust the Klonopin to 0.5 mg a.m. and 0.5 mg nightly scheduled and up to 2 doses of 0.5 mg Klonopin as needed for anxiety Maintained treatment plan as above 09/15 change klonopin to 0.5mg am and 0.5mg hs and 0.5mg prn one dose only in a day (3) Nicotine dependence: 09/12 -patient has cut back significantly on her smoking over the past 2 months, but would like to try discontinuing Chantix to see if it helps with mood. She would like to utilize nicotine replacement instead, so will order a 7 mg patch and nicotine gum as needed. Follow-up will be scheduled with her outpatient psychiatrist for ongoing smoking cessation treatment. 09/14 - The nicotine gum for breakthrough cravings and increased motivation for quitting smoking and addressing her struggles with quitting and her past history of quitting Risk Factors Assessment Male: No : Yes Do You Have Access To A Gun?: No Health Problems: Yes Mental Health Diagnoses: Yes Substance Use Disorders: No Previous Attempt: No Family History of Suicide: No Previous Psychiatric Hospitalization: Yes Hopelessness: No Smoker: Yes Protective Factors Assessment : Yes Responsible for Young Children: No Employed: No Stable Relationships: Yes Supportive Family: Yes Good Rapport with Provider: Yes Interval History Chief Complaint "feeling better but urinated in my bed last night". 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 Meal Information Percent Meal Consumed - Breakfast: 100 Percent Meal Consumed - Lunch: 100 Percent Meal Consumed - Dinner: 100 Nutrition Comment: per meal record Subjective Subjective Patient was seen & assessed and interval progress reviewed with nursing and social work. pt reported how improved in mood and in her thinking and in her concentration, was able to read a maagazine. doing decnetly with not smoking here on the unnit. She is imrpvoed in moood and affect and feels notably improved. She is less tired but feels that sleeps too depply and had unrated in her bed last night and wakes up lightheaded and groggly. Ptaddressing sedaiton and lgihtheaded s/e from medication, pt aiming to wean her klonopin dosage and how has lowered over past year or so and aiming to lwoer further. Pt denied SI. denied other s/e Physical Exam Psychiatric Orientation: alert, oriented x 3 and cooperative Apperance: appropriately dressed, appropriately groomed and appeared stated age Eye Contact: good eye contact Motor Behavior: steady gait and station and no abnormal motor movements Speech: normal rate/rhythm/volume of speech Affect: mood congruent with affect brighter and more full range Mood: no depressed mood ("It is getting better."), no anxious mood and no irritable mood Thought Process: goal directed thought process and linear/logical thought process Thought Content: reality based without delusions Suicidal Thoughts: denies suicidal thoughts Homicidal Thoughts: denies homicidal thoughts Hallucinations: no auditory hallucinations and no visual hallucinations Cognition: recent memory grossly intact, remote memory grossly intact, attention grossly intact and language grossly intact Estimated Intelligence: average estimated intelligence Insight: + fair insight improving Judgement: good judgement Vital Signs (Past 24 Hours) Last Vital Signs Temp 36.6 C 09/15/19 06:00 Pulse 78 09/15/19 06:30 Resp 18 09/15/19 06:00 BP 117/74 09/15/19 06:30 Pulse Ox 98 09/11/19 22:32 Results & Data Current Inpatient Medications Current Inpatient Medications: Current Inpatient Medications Acetaminophen (Tylenol) 650 mg PO Q4H PRN PRN Reason: Headache or Minor Fever Stop: 10/11/19 22:45 Al Hydrox/Mg Hydrox/Simethicone (Maalox) 30 ml PO Q4H PRN PRN Reason: GI Upset Stop: 10/11/19 22:45 Aspirin (Ecotrin Ectab) 81 mg PO QAM [facility] Stop: 10/12/19 08:59 Last Admin: 09/15/19 08:34 Dose: 81 mg Documented by: Bismuth Subsalicylate (Kaopectate) 15 ml PO PRN PRN PRN Reason: Loose Stool Stop: 10/11/19 22:45 Last Admin: 09/14/19 11:25 Dose: 15 ml Documented by: Clonazepam (Klonopin) 0.5 mg PO BID PRN PRN Reason: Anxiety Stop: 10/14/19 16:54 Last Admin: 09/15/19 16:17 Dose: 0.5 mg Documented by: Clonazepam (Klonopin) 0.5 mg PO BID [facility] Stop: 10/14/19 20:59 Last Admin: 09/15/19 08:33 Dose: 0.5 mg Documented by: Dicyclomine HCl (Bentyl) 40 mg PO HS [facility] Stop: 10/12/19 21:59 Last Admin: 09/14/19 21:31 Dose: 40 mg Documented by: Fenofibrate (Fenofibrate) 192 mg PO DAILY [facility] Stop: 10/12/19 08:59 Last Admin: 09/15/19 08:33 Dose: 192 mg Documented by: Fish Oil ([place]ura [place]-3 (Purified Fish Oil)) 2 gm PO BID [facility] Stop: 10/12/19 08:59 Last Admin: 09/15/19 08:33 Dose: 2 gm Documented by: Hydroxyzine HCl (Vistaril) 50 mg PO HSZ PRN PRN Reason: Insomnia Stop: 10/11/19 23:07 Hydroxyzine HCl (Vistaril) 25 mg PO Q4H PRN PRN Reason: Anxiety Stop: 10/11/19 22:45 Ibuprofen (Motrin) 600 mg PO Q8H PRN PRN Reason: Pain Stop: 10/14/19 16:53 Last Admin: 09/15/19 11:06 Dose: 600 mg Documented by: Lamotrigine (Lamictal) 200 mg PO BID [facility] Stop: 10/12/19 08:59 Last Admin: 09/15/19 08:34 Dose: 200 mg Documented by: Linaclotide (Linzess) 72 mcg PO DAILYBB@0700 [facility] Stop: 10/15/19 06:59 Last Admin: 09/15/19 06:56 Dose: Not Given Documented by: Lisinopril (Zestril) 2.5 mg PO HS [facility] Stop: 10/11/19 22:59 Last Admin: 09/14/19 21:33 Dose: 2.5 mg Documented by: Lovastatin (Mevacor) 20 mg PO [facility] Stop: 10/11/19 22:59 Last Admin: 09/14/19 21:32 Dose: 20 mg Documented by: Magnesium Hydroxide (Milk Of Magnesia) 30 ml PO DAILY PRN PRN Reason: Constipation Stop: 10/11/19 22:45 Miscellaneous (Remove Nicoderm Patch) 1 ea N/A DAILY@0859 [facility] Stop: 10/13/19 08:58 Last Admin: 09/15/19 08:34 Dose: 1 ea Documented by: Multivitamins (Multivitamin Tab) 1 tab PO QAM [facility] Stop: 10/12/19 08:59 Last Admin: 09/15/19 08:34 Dose: 1 tab Documented by: Nicotine (Nicoderm Cq) 7 mg TD QAM [facility] Stop: 10/12/19 11:44 Last Admin: 09/15/19 08:34 Dose: 7 mg Documented by: Nicotine Polacrilex (Nicorette 2mg) 1 piece MT PRN PRN PRN Reason: cravings Stop: 10/12/19 11:55 Olanzapine (Zyprexa) 7.5 mg PO HS [facility] Stop: 10/12/19 21:59 Last Admin: 09/14/19 21:32 Dose: 7.5 mg Documented by: Pantoprazole Sodium (Protonix) 40 mg PO HS [facility] Stop: 10/14/19 21:59 Last Admin: 09/14/19 21:32 Dose: 40 mg Documented by: Sodium Chloride ([place]ley Nasal) 1 - 2 sprays NA PRN PRN PRN Reason: Nasal Dryness/Congestion Stop: 10/11/19 22:45 Trazodone HCl (Desyrel) 100 mg PO HS [facility] Stop: 10/15/19 21:59 Mental Health & Subst Abuse Tx Psychiatrist Name of Psychiatrist: Ann Walsh Psychiatrist's Date of Appointment with Psychiatrist: 09/18/19 Time of Appointment with Psychiatrist: 8:40am and 10/02/19 at 1:40pm. Psychiatric Appointment Comment: [address], [place] [address] Therapist Name of Therapist: Ann Dumont - Therapist's Date of Therapist Appointment: 09/12/19 Time of Therapist Appointment: October 02, 2019 Therapy Appointment Comment: [address], [place] [address] Architecture Analyst Name of Architecture Analyst: Denies/None Post Discharge Appointments Primary Care Physician Name Of Family Doctor: Dr. Feliciano Primary [facility] Time of Appointment with PCP: Follow up as needed. Provider Appointment Comment: Constance [address], [place] [id number] Contact Information Discharge Discharge [address]: [address] [place] [address] (1) Depression Active/Remission status: currently active Depression Type: major depressive disorder Major depression episode severity: severe Major depression recurrence: recurrent Psychotic features: with psychotic features Qualified Code(s): F33.3 - Major depressive disorder, recurrent, severe with psychotic symptoms
[2019-09-15] MEDS ORDERED: clonazePAM 0.5 MG TAB PO PRN (16:40)
[2019-09-15] MEDS: DICYCLOMINE HCL 20 MG TAB PO SCH (21:17)
[2019-09-15] MEDS: OLANZapine 5 MG TABLET PO SCH (21:18)
[2019-09-15] MEDS: LOVASTATIN 20 MG TAB PO SCH (21:18)
[2019-09-15] MEDS: PANTOprazole 40 MG TAB PO SCH (21:18)
[2019-09-15] MEDS: LISINOPRIL 2.5 MG TAB PO SCH (21:18)
[2019-09-15] MEDS ORDERED: TRAZODONE HCL 100 MG TAB PO SCH (22:00)
[2019-09-16] MEDS: LINACLOTIDE 72 MCG CAPSULE PO SCH (06:58)
[2019-09-16] MEDS: FENOFIBRATE NANOCRYSTALLIZED 48 MG TABLET PO SCH (08:33)
[2019-09-16] MEDS: ASPIRIN 81 MG ECTAB PO SCH (08:33)
[2019-09-16] MEDS: MULTIVITAMIN TAB PO SCH (08:34)
[2019-09-16] MEDS: lamoTRIgine 100 MG TAB PO SCH (08:34)
[2019-09-16] MEDS: clonazePAM 0.5 MG TAB PO SCH (08:34)
[2019-09-16] MEDS: OMEGA-3 (PURIFIED FISH OIL) 1 GM CAP PO SCH (08:35)
[2019-09-16] MEDS: NICOTINE 7 MG/24 HR TDSY TD SCH (08:35)
[2019-09-16] MEDS: IBUPROFEN 600 MG TAB PO PRN (08:35)
[2019-09-16] MEDS: BISMUTH SUBSALICYLATE PER ML OMNICELL CHARGE PO PRN ×2 (09:57→11:08)
--- NOTE | 2019-09-16 11:10 | Discharge Summary ---
Date of Service September 16, 2019 History of Present Illness Patient is known to us from a previous hospitalization on our unit in March 2018 for paranoia and delusions of persecution. She thought that drug addicts were coming into her home and tampering with her belongings, and that her food and water at home were contaminated. She did not demonstrate significant mood symptoms, and was diagnosed with psychosis NOS with consideration for schizoaffective disorder. She was continued on her home dose of lamotrigine for bipolar disorder, and trazodone and clonazepam were decreased due to sedation, and was initially switched from olanzapine to ziprasidone to target psychosis. She then refused to continue the ziprasidone trial as she felt it was causing side effects, so was switched back to olanzapine and ultimately discharged on 5 mg at bedtime. She was discharged to follow-up with her outpatient psychiatrist and referred for therapy at [facility] as well. She presented to the ER twice in the past 2 days, and initially the evening of 09/10/2019, reporting worsening depression, with passive suicidal ideation. She denied any plan or intent to harm herself, and was discharged home. She saw her outpatient psychiatrist, Dr. Walsh, yesterday, and reported worsening mood and suicidal ideation with thoughts of cutting herself or overdosing. He referred her to the hospital for inpatient treatment. Laboratory workup in the ER was unremarkable. On my assessment, she reports worsening depression for the past few months, has been isolating and feeling more hopeless, with increasing suicidal thoughts, "they got bad." She reports lining up all of her pill bottles this past weekend, and thinking about overdosing on them, and has also had thoughts of cutting her wrists. Her children are protective. She reports frequent crying spells, restless sleep, increased appetites with 20lb weight gain (she thinks due to quitting smoking), feeling overwhelmed, hopelessness, and low energy. States she has been on Chantix for 2 months and has decreased her smoking from "chain smoking all day," (2+ PPD) to 6-8 cigarettes/day. She does think it has contributed to decreased mood, and would like to stop it (although outpatient progress note from 08/08/2019 states she had not noticed exacerbation of psychiatric symptoms). Anxiety has been "off the charts," and states she struggles to remember to take clonazepam,which she states she takes 0.5mg qid. She also states she only takes olanzapine 5mg at bedtime, although it is prescribed BID, because it causes sedation during the day. She denies any recent psychotic symptoms, and none are noted in outpatient records from recent months. Physical Exam Psychiatric Orientation: alert and cooperative Apperance: appropriately dressed and appropriately groomed Eye Contact: good eye contact Motor Behavior: steady gait and station and no abnormal motor movements Speech: normal rate/rhythm/volume of speech Affect: euthymic affect and mood congruent with affect "Great, much better!" Thought Process: goal directed thought process and linear/logical thought process Thought Content: reality based without delusions Suicidal Thoughts: denies suicidal thoughts Homicidal Thoughts: denies homicidal thoughts Hallucinations: no auditory hallucinations and no visual hallucinations Cognition: recent memory grossly intact, attention grossly intact and language grossly intact Insight: + fair insight Judgement: + fair judgement Vital Signs (Past 24 Hours) Last Vital Signs Temp 36.7 C 09/16/19 11:08 Pulse 79 09/16/19 11:08 Resp 18 09/16/19 11:08 BP 109/69 09/16/19 11:08 Pulse Ox 98 09/16/19 11:08 Principal Diagnosis Major depressive disorder, recurrent, severe without psychosis Panic disorder with agoraphobia Nicotine dependence Psychiatric Data The patient was hospitalized on our unit for 5 days. On admission, olanzapine was increased to 7.5 mg at bedtime (although outpatient prescription indicated 5 mg twice daily, she stated she was only taking 5 mg at bedtime), and her home dose of lamotrigine was continued. She was also continued on her home dose of clonazepam (prescribed 1 mg twice daily, but she reported taking 0.5 mg 4 times daily). Chantix was discontinued, as she questioned whether it was contributing to worsening mood. She had been able to decrease her cigarette use from 2 packs+/day to 6 cigarettes a day, and used the 7 mg nicotine patch with good effect while in the hospital. Her mood improved in the hospital, and she tolerated the olanzapine dose increase well. She reported oversedation (nighttime urinary incontinence due to inability to awake to use the bathroom, and morning sedation), and her trazodone and clonazepam doses were reduced. She reported diarrhea, and her Linzess dose was decreased. She was observed to be eating and sleeping well in the hospital, was compliant with medications, and participated in groups and therapy. She had a family meeting with the social services technician, her , and her daughter on 09/14/2019. She identified activities that she could use to increase her structure at home and keep her busy, identified gardening, care of house plants, painting, and crafts his activities she is enjoys/useful coping skills. She also talked of plans to work with senior citizens or at an animal jail, as she wanted to volunteer and help others. Suicidal thoughts resolved, and she agreed to a referral for outpatient therapy. Day of Discharge Assessment Staff report the patient is reporting improved mood, consistently denying suicidality, engaging well in treatment and in interactions with staff and peers. On my assessment, the patient reports mood is "great, much better," and thinks that treatment has been very helpful, particularly being around other people and group therapy. She reports good sleep, and denies suicidal thoughts. She is able to review her discharge safety plan and healthy coping skills she has been working on and plans to utilize at home. She is willing to resume therapy, and has an appointment scheduled later this week. She denies side effects to medications, and wants to continue on the lower dose of Linzess, as she continues to have mild diarrhea. She plans to continue working on smoking cessation, and wants to continue with the patches at home. Transition of Care Transition Of Care Record: was reviewed with the patient Advance Directives Advance Directives Information Provided: Yes Advance Directives: No Mental Health Advance Directive: No Advance Directives on File: No Living Will: No Power of Project Architect: No Advance Directives Reason:: Declines as Mental Health Visit. Risk Factors Assessment Risk factors were mitigated by admission to the inpatient unit, adjusting medications to target mood, sleep, and anxiety, education about her diagnoses and the recommended treatment, referring her for a higher level of outpatient care (psychotherapy), treating comorbid medical conditions, adjusting medications to limit unwanted side effects, involving her and daughter in a family meeting, involving her in groups and therapy, working on healthy coping skills and a discharge safety plan, and exploring ways to increase structure and socialization at home. She is reporting improved mood, denying suicidal thoughts, completing ADLs independently, and stating willingness to follow up with outpatient treatment. She is requesting discharge, and that she is no longer at acute risk of harm to herself, can be managed as an outpatient at this time. She is not at increased risk for harm to others. Male: No : Yes Do You Have Access To A Gun?: No Health Problems: Yes Mental Health Diagnoses: Yes Substance Use Disorders: No Previous Attempt: No Family History of Suicide: No Previous Psychiatric Hospitalization: Yes Hopelessness: No Smoker: Yes Protective Factors Assessment : Yes Responsible for Young Children: No Employed: No Stable Relationships: Yes Supportive Family: Yes Good Rapport with Provider: Yes Tobacco Cessation at Discharge Tobacco Cessation Medication Prescribed at Discharge: Offered & Prescribed (Outpatient follow-up scheduled with her psychiatrist, Dr. Walsh) Total Time Total Time Spent: Greater Than 30 Minutes Total Time Includes: Examination of the patient, Discharge Planning and Medication Reconciliation Discharge Data Lab Results 09/11/19 09/11/19 09/11/19 19:12 19:12 19:12 WBC 5.51 RBC 4.64 Hgb 13.9 Hct 43.2 MCV 93.1 MCH 30.0 MCHC 32.2 RDW Std Deviation 48.2 H RDW Coeff of Khadra 14.3 Plt Count 147 MPV 11.3 H Immature Gran % (Auto) 0.2 Neut % (Auto) 46.5 Lymph % (Auto) 41.0 Shasta % (Auto) 9.4 Eos % (Auto) 2.4 Baso % (Auto) 0.5 Immature Gran # (Auto) 0.01 Neut # (Auto) 2.56 Lymph # (Auto) 2.26 Shasta # (Auto) 0.52 Eos # (Auto) 0.13 Baso # (Auto) 0.03 Sodium 141 Potassium 3.7 Chloride 108 H Carbon Dioxide 26 Anion Gap 7.0 BUN 36 H Creatinine 0.80 Est Cr Clr Drug Dosing Not Reportable Est GFR ( Amer) 94.9 Est GFR (Non-Af Amer) 81.8 BUN/Creatinine Ratio 44.7 H Glucose 127 H Calcium 9.2 Total Bilirubin 0.2 AST 22 ALT 34 Alkaline Phosphatase 48 Total Protein 6.3 L Albumin 3.7 Globulin 2.6 Albumin/Globulin Ratio 1.4 TSH 1.870 Urine Color Urine Appearance Urine pH Ur Specific Uvalda Urine Protein Urine Glucose (UA) Urine Ketones Urine Blood Urine Nitrite Urine Bilirubin Urine Urobilinogen Ur Leukocyte Esterase Urine WBC (Auto) Urine RBC (Auto) U Hyaline Cast (Auto) U Epithel Cells (Auto) Urine Bacteria (Auto) Salicylates 2.9 Urine Opiates Screen Ur Methadone, Qual Acetaminophen < 2 L Urine Barbiturates Ur Phencyclidine (PCP) U Amphetamin/Meth Scrn MDMA (Ecstasy) Screen U Benzodiazepines Scrn Ur Cocaine Metabolite U Marijuana (THC) Screen Ethyl Alcohol mg/dL 09/11/19 09/11/19 09/11/19 19:12 20:30 20:30 WBC RBC Hgb Hct MCV MCH MCHC RDW Std Deviation RDW Coeff of Khadra Plt Count MPV Immature Gran % (Auto) Neut % (Auto) Lymph % (Auto) Shasta % (Auto) Eos % (Auto) Baso % (Auto) Immature Gran # (Auto) Neut # (Auto) Lymph # (Auto) Shasta # (Auto) Eos # (Auto) Baso # (Auto) Sodium Potassium Chloride Carbon Dioxide Anion Gap BUN Creatinine Est Cr Clr Drug Dosing Est GFR ( Amer) Est GFR (Non-Af Amer) BUN/Creatinine Ratio Glucose Calcium Total Bilirubin AST ALT Alkaline Phosphatase Total Protein Albumin Globulin Albumin/Globulin Ratio TSH Urine Color Yellow Urine Appearance Clear Urine pH 5.5 Ur Specific Uvalda 1.029 Urine Protein Negative Urine Glucose (UA) Negative Urine Ketones Negative Urine Blood Negative Urine Nitrite Negative Urine Bilirubin Negative Urine Urobilinogen Negative Ur Leukocyte Esterase Trace H Urine WBC (Auto) 1-5 Urine RBC (Auto) 0-4 U Hyaline Cast (Auto) 1-5 U Epithel Cells (Auto) >30 H Urine Bacteria (Auto) Negative Salicylates Urine Opiates Screen Neg Ur Methadone, Qual Neg Acetaminophen Urine Barbiturates Neg Ur Phencyclidine (PCP) Neg U Amphetamin/Meth Scrn Neg MDMA (Ecstasy) Screen Pos H U Benzodiazepines Scrn Neg Ur Cocaine Metabolite Neg U Marijuana (THC) Screen Neg Ethyl Alcohol mg/dL < 3.0 Hospital Course (1) Depression: 09/12 -continue home dose of lamotrigine, and patient agrees to increase Zyprexa to 7.5 mg at bedtime to target sleep and mood. -Patient is asking to discontinue Chantix, as she thinks it is contributing to worsening mood. -Continue trazodone for sleep. -Encourage participation in groups and therapy, work on healthy coping skills and a discharge safety plan. -Family meeting has been. -Encourage her to engage in outpatient therapy, and explore ways to increase her supports and socialization. -Request most recent fasting labs for monitoring on an atypical antipsychotic, which patient states she had done at [facility] in [place]. 09/13 -We will reduce the dose of trazodone to 150 mg at bedtime given the patient's report of some excess sedation in the mornings. -Continue to observe the patient off Chantix. -Consider adding an antidepressant medication as indicated in the future. -Continue mood stabilizers. 09/14 consider further reduction of trazodone but maintained at 150g hs for now maintained Olanzapine for now but monitoring for her sedation level as she adjusts to this dosage and educated patient about the interaction with her cigarette smoking and how quitting impacts this while utilizing this as a way to increase her motivation to become and remain smoke free 09/15 lowered trazodone to 100mg hs, (2) Panic disorder with agoraphobia: 09/12 -continue clonazepam and change dosing to 0.5 mg 4 times daily, which is how the patient states she takes it at home and how it is most effective. 09/13 -The patient reports that she feels more calm and less prone to panic with the [id number]-[id number]-frequent-dose of clonazepam. Clonazepam 1 mg twice a day has been discontinued (her outpatient dose) in favor of clonazepam 0.5 mg 4 times daily. -Mindfulness techniques reinforced. 09/14 - Adjust the Klonopin to 0.5 mg a.m. and 0.5 mg nightly scheduled and up to 2 doses of 0.5 mg Klonopin as needed for anxiety Maintained treatment plan as above 09/15 change klonopin to 0.5mg am and 0.5mg hs and 0.5mg prn one dose only in a day (3) Nicotine dependence: 09/12 -patient has cut back significantly on her smoking over the past 2 months, but would like to try discontinuing Chantix to see if it helps with mood. She would like to utilize nicotine replacement instead, so will order a 7 mg patch and nicotine gum as needed. Follow-up will be scheduled with her outpatient psychiatrist for ongoing smoking cessation treatment. 09/14 - The nicotine gum for breakthrough cravings and increased motivation for quitting smoking and addressing her struggles with quitting and her past history of quitting Mental Health & Subst Abuse Tx Psychiatrist Name of Psychiatrist: Ann Walsh Psychiatrist's Date of Appointment with Psychiatrist: 09/18/19 Time of Appointment with Psychiatrist: 8:40am and 10/02/19 at 1:40pm. Psychiatric Appointment Comment: [address], [place] [address] Psychiatrist Release of Information: Obtained, Reviewed and Signed Therapist Name of Therapist: Ann Dumont - Therapist's Date of Therapist Appointment: 09/12/19 Time of Therapist Appointment: October 02, 2019 Therapy Appointment Comment: [address], [place] [address] Therapist Release of Information: Obtained, Reviewed and Signed Block Cableman Name of Block Cableman: Denies/None Post Discharge Appointments Primary Care Physician Name Of Family Doctor: Dr. Feliciano Primary Care Time of Appointment with PCP: Follow up as needed. Provider Appointment Comment: [address], [place] [address] Primary Care Release of Information: Obtained, Reviewed and Signed Smoking Cessation Counseling Tobacco Cessation Medication Prescribed at Discharge: Offered & Prescribed (Outpatient follow-up scheduled with her psychiatrist, Dr. Walsh) Tobacco Cessation Counseling: Offered and Refused Contact Information Discharge Discharge Address: [address] [place] [address] Discharge Plan Discharge Items Patient Disposition: Home - Self-Care Reason For Visit: MDD Discharge Diagnosis: Depression Panic disorder Activity: Per Instructions section Non-emergency contact: Primary Care Provider, Sr. Media Manager, Psychiatrist and Therapist Call non-emergency contact if: you have any medication questions and your symptoms worsen Follow-up/Referrals: Ed Feliciano [Primary Care Provider] - Diet: Lactose Intolerant Addtl Attending Provider Instructions: SPECIAL CARE INSTRUCTIONS: 1. Follow through with your scheduled aftercare appointments. If unable to keep an appointment, please call to reschedule. 2. Take your medication only as prescribed. Medication should not be changed or stopped without the approval of your doctor. In the event of worsening symptoms or concerns about side effects, contact your doctor immediately. 3. Utilize new healthy coping skills, anger management skills, and stress management skills learned during your hospitalization. Journal feelings and process them with a support person. Identify stressors or situations that may result in relapse, deterioration or inappropriate behaviors and develop a plan to deal with those issues. 4. If your coping skills are ineffective and you are in crisis, contact your outpatient providers for direction. If unable to reach your providers, please call the CAN HELP LINE AT or go to the closest Emergency Room. 5. Avoid alcohol and un-prescribed drugs. 6. You have been provided with the Mental Health Advance Directives Pamphlet for your review. AFTERCARE APPOINTMENTS: * Please call your insurance company prior to your scheduled appointment to confirm your aftercare providers are covered. Take your insurance information to your appointments. WHO TO CALL AND WHEN: Medical Emergencies: For questions or emergencies related to your hospital stay, please contact the Inpatient Behavioral Health Unit at [phone]. A psychiatric assistant is on-call 22/05 for the Behavioral Health Unit for emergencies At any time you feel your situation is an emergency, you may also call 911 immediately. Your Doctors Instructions noted above were prepared by provider Bettina Hernandez MD. Pending Studies at Discharge: No Stand-Alone Forms: My [facility], Smoking Cessation, Suicide Prevention Resources Medications and DC Order Prescriptions: New nicotine 7 mg/24 hr Patch 24 Hour 7 mg transdermal QAM Qty: 14 RF: 0 Linzess 72 mcg Capsule 72 mcg PO DAILYBB@0700 Qty: 30 RF: 0 Continued aspirin 81 mg Tablet,Delayed Release (Dr/Ec) 81 mg PO DAILY Qty: 0 RF: 0 Multi Vitamin tablet 1 tab PO DAILY Qty: 0 RF: 0 lamotrigine [Lamictal] 200 mg tablet 200 mg PO BID RF: 0 fenofibrate micronized 200 mg capsule 200 mg PO QAM RF: 0 dicyclomine 20 mg tablet 20 mg PO QID RF: 0 esomeprazole magnesium [Nexium] 40 mg capsule,delayed release(DR/EC) 40 mg PO HS RF: 0 lovastatin 20 mg tablet 20 mg PO HS RF: 0 lisinopril 2.5 mg tablet 2.5 mg PO HS RF: 0 omega-3 acid ethyl esters [Lovaza] 1 gram capsule 2 g PO BID RF: 0 Changed olanzapine [Zyprexa] 5 mg tablet 7.5 mg PO HS Qty: 0 RF: 0 clonazepam 1 mg tablet 0.5 mg PO BID PRN (Reason: Anxiety) Qty: 0 RF: 0 trazodone 100 mg tablet 100 mg PO HS PRN (Reason: Sleep) Qty: 0 RF: 0 Discontinued Chantix 1 mg tablet 1 mg PO QAM RF: 0 Linzess 145 mcg capsule 145 mcg PO DAILY RF: 0 Discharge Orders: Discharge Order (Routine); Ordered 09/16/19 Ordered By: Bettina Hernandez Admission Data Admit Date/Time: 09/11/19 22:04 Attending Provider: Bettina Hernandez Admit Provider: Bettina Hernandez Primary Care Provider: Ed Feliciano Other Interventions: Discharge Summary Assessment (RN) Last Done: 09/16/19 11:08 PSY Interdisciplinary Discharge Planning Last Done: 09/16/19 11:07 Coding Level of Care Code 43786 D/C day mgmt > 30 min Diagnoses Depression F33.3 Active/Remission status: currently active Depression Type: major depressive disorder Major depression episode severity: severe Major depression recurrence: recurrent Psychotic features: with psychotic features Panic disorder with agoraphobia F40.01 Nicotine dependence F17.200
== END 2019-09-16 12:25 | disposition home or self-care (01) | DRG 885 ==
LOC: ED 18:19 → 3S 22:04